=== PATIENT | male | born 1975 | race Caucasian/White ===

== ENCOUNTER → 2017-09-21 | Outpatient (CLI) | payer OTHER, SELFPAY | PROVIDERS: Visit Provider Internal Medicine | DX: I10 Essential (primary) hypertension (principal); E11.9 Type 2 diabetes mellitus without complications; E03.9 Hypothyroidism, unspecified | CPT/HCPCS: 80053; 80061; 83036; 84443 ==

== ENCOUNTER → 2017-10-01 | Outpatient (CLI) | payer OTHER, SELFPAY | PROVIDERS: PCP Internal Medicine; Visit Provider Internal Medicine | DX: M54.42 Lumbago with sciatica, left side (principal) | CPT/HCPCS: 72148; 76376 ==

== ENCOUNTER → 2017-11-01 10:51 | Outpatient (POV) | payer OTHER, SELFPAY ==
[2017-11-01 11:03] VITALS: BP 124/86; PULSE 94; RESP 18
--- NOTE | 2017-11-01 11:32 | HMH.PMCON ---
Assessment and Plan (1) Lumbosacral radiculopathy due to degenerative joint disease of spine Current visit: Yes Status: Chronic Category: Medical Code(s): M47.27 - Other spondylosis with radiculopathy, lumbosacral region (2) Degenerative joint disease (DJD) of lumbar spine Current visit: Yes Status: Chronic Qualifiers: Spinal osteoarthritis complication: with radiculopathy Qualified Code(s): M47.26 - Other spondylosis with radiculopathy, lumbar region Category: Medical Code(s): M47.816 - Spondylosis without myelopathy or radiculopathy, lumbar region - Assessment and plan all Dx Assessment and Plan for all problems:: We will seek approval and plan on lumbar epidural steroid injection under fluoroscopy at L4-L5. HPI - Data of Consult Patient: new to practice Consult date: 11/01/17 Requesting Physician: Rolando Hancock MD Primary Care Provider: Narciso Ramos - Consult Narrative Reason for consult: Low back pain and leg pain History of present illness: Mr. Grey is a 42 year old male who has low back pain and left leg pain. This is aggravated by repetitive bending at his job. Pain score is a 3 out of 10 today however when he is working it does increase to a 10 out of 10. Most of his pain is in the left leg all the way to the foot. MRI does show degenerative changes with bulging disc at L4-L5 and L5-S1. He also has facet hypertrophy at these levels. He has done physical therapy without any benefit. He is failed all other curative therapy. I do believe that he would benefit from a lumbar epidural steroid injection under fluoroscopy. Patient also reports that he has lost 30 pounds of weight which is not giving him any relief of his pain symptoms. CC: Rolando Hancock MD [facility] History I have reviewed the patient's past medical history: Yes 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: Reports:: Diabetes Mellitus Type 1, Diabetes Mellitus Type 2, Hyperlipidemia, Hypertension Denies:: Cancer, MRSA Amputation: No Fractures: No - *Social History Alcohol Intake: never Occupational Status: employed - Psychiatric History Expresses thoughts of harming self/others: None Suicide Plan Description: No Plan Review of Systems - Review of Systems Review of systems:: pertinent systems reviewed and negative unless documented below - *Musculoskeletal Reports abnormal walking, Reports back pain, Reports radiating pain into limb - *Neurologic Reports abnormal walking, Reports tingling/numbness/burning sensations, Reports radiating pain Meds Home Medications Medication Instructions Recorded Confirmed Type Levothyroxine Sodium 50 mcg PO DAILY 11/01/17 11/01/17 History [Levothyroxine 50mcg (0.05mg) Tab] Lisinopril [Lisinopril 20mg Tab] 20 mg PO DAILY 11/01/17 11/01/17 History Metformin HCl [Metformin HCl ER] 500 mg PO BID 11/01/17 11/01/17 History Sertraline HCl [Zoloft 100mg 200 mg PO DAILY 11/01/17 11/01/17 History tablet] Allergies Allergy/AdvReac Type Severity Reaction Status Date / Time No Known Allergies Allergy Unverified 09/21/17 14:05 Objective Vital signs: Pulse Resp BP 94 H 18 124/86 11/01/17 11:03 11/01/17 11:03 11/01/17 11:03 - Routine Back/Spine/Pelvis Exam Back/Spine: Present: vertebral tenderness, abnormal straight leg raise - *Routine Neurological Exam Present: alert, oriented X3, abnormal gait, moving all extremities Opioid Risk Tool - Opioid Risk Tool-Male Family hx alcohol abuse: N Family hx illegal drugs: N Family hx rx drug abuse: N Personal hx alcohol abuse: N Personal hx illegal drugs: N Personal hx rx drug abuse: N Age: 16-45 Hx of sexual abuse: N Mental health issues-ADD,OCD,Bipolar, etc: N Hx of depression: Y Male Risk Score: 2
--- NOTE | 2017-11-01 11:35 | P.CONS_ITS ---
Assessment and Plan (1) Lumbosacral radiculopathy due to degenerative joint disease of spine Current visit: Yes Status: Chronic Category: Medical Code(s): M47.27 - Other spondylosis with radiculopathy, lumbosacral region (2) Degenerative joint disease (DJD) of lumbar spine Current visit: Yes Status: Chronic Qualifiers: Spinal osteoarthritis complication: with radiculopathy Qualified Code(s): M47.26 - Other spondylosis with radiculopathy, lumbar region Category: Medical Code(s): M47.816 - Spondylosis without myelopathy or radiculopathy, lumbar region - Assessment and plan all Dx Assessment and Plan for all problems:: We will seek approval and plan on lumbar epidural steroid injection under fluoroscopy at L4-L5. HPI - Data of Consult Patient: new to practice Consult date: 11/01/17 Requesting Physician: Rolando Hancock MD Primary Care Provider: Narciso Ramos - Consult Narrative Reason for consult: Low back pain and leg pain History of present illness: Mr. Grey is a 42 year old male who has low back pain and left leg pain. This is aggravated by repetitive bending at his job. Pain score is a 3 out of 10 today however when he is working it does increase to a 10 out of 10. Most of his pain is in the left leg all the way to the foot. MRI does show degenerative changes with bulging disc at L4-L5 and L5-S1. He also has facet hypertrophy at these levels. He has done physical therapy without any benefit. He is failed all other curative therapy. I do believe that he would benefit from a lumbar epidural steroid injection under fluoroscopy. Patient also reports that he has lost 30 pounds of weight which is not giving him any relief of his pain symptoms. CC: Rolando Hancock MD [facility] History I have reviewed the patient's past medical history: Yes 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: Reports:: Diabetes Mellitus Type 1, Diabetes Mellitus Type 2, Hyperlipidemia, Hypertension Denies:: Cancer, MRSA Amputation: No Fractures: No - *Social History Alcohol Intake: never Occupational Status: employed - Psychiatric History Expresses thoughts of harming self/others: None Suicide Plan Description: No Plan Review of Systems - Review of Systems Review of systems:: pertinent systems reviewed and negative unless documented below - *Musculoskeletal Reports abnormal walking, Reports back pain, Reports radiating pain into limb - *Neurologic Reports abnormal walking, Reports tingling/numbness/burning sensations, Reports radiating pain Meds Home Medications Medication Instructions Recorded Confirmed Type Levothyroxine Sodium 50 mcg PO DAILY 11/01/17 11/01/17 History [Levothyroxine 50mcg (0.05mg) Tab] Lisinopril [Lisinopril 20mg Tab] 20 mg PO DAILY 11/01/17 11/01/17 History Metformin HCl [Metformin HCl ER] 500 mg PO BID 11/01/17 11/01/17 History Sertraline HCl [Zoloft 100mg 200 mg PO DAILY 11/01/17 11/01/17 History tablet] Allergies Allergy/AdvReac Type Severity Reaction Status Date / Time No Known Allergies Allergy Unverified 09/21/17 14:05 Objective Vital signs: Pulse Resp BP 94 H 18 124/86 11/01/17 11:03 11/01/17 11:03 11/01/17 11:03 - Routine Back/Spine/Pelvis Exam Back/Spine: Present: vertebral tenderness, abnormal straight leg raise - *Routine Neurological Exam Present: alert, oriented X3, abnormal gait, moving all extremities Opi
== END ==
PROVIDERS: PCP Internal Medicine; Visit Provider Anesthesiology
DX: M47.27 Other spondylosis with radiculopathy, lumbosacral region (principal)
CPT/HCPCS: 99202

== ENCOUNTER 2017-11-25 14:08 | Emergency (ER) | payer OTHER, SELFPAY ==
[2017-11-25 15:07] LABS: UTC Influenza A Antigen Negative (Negative); UTC Influenza B Antigen Negative (Negative)
[2017-11-25 15:08] VITALS: BP 181/88; PULSE 68; RESP 18; TEMP 36.5; O2SAT 96; BMI 40.6
--- NOTE | 2017-11-25 16:22 | HMH.EDUTC ---
[facility] Disposition Clinical Impression: Chest pain Qualifiers: Chest pain type: unspecified Qualified Code(s): R07.9 - Chest pain, unspecified Disposition: Still a Patient Condition on Discharge: Good Time of Disposition: 16:52 (transfer to ER) Medical Decision Making Vital Signs: 11/25/17 15:08 Temperature 97.7 F Temperature Source Temporal Artery Scan Pulse Rate [Right Radial] 68 Respiratory Rate 18 Blood Pressure [Right Arm] 181/88 Blood Pressure Mean [Right Arm] 119 02 Sat by Pulse Oximetry 96 Oxygen Delivery Method Room Air - Lab Data Lab results reviewed: Yes: I reviewed the patient's lab results. Lab Results 11/25/17 14:40: Influenza Type A Ag Negative, Influenza Type B Ag Negative - Mert Inquiry Pt receiving controlled substance: No - Reevaluation(s) Time: 16:30 Reevaluation #1: Discussed HPI and possible differentials as we are discussing HPI. Suggest transfer to er to rule out cardiac in nature. Pt afraid insurance won't cover it. I have to call them first . Pt calls them while in clinic prior to exam. Was on the phone for a period of time so I left to see more patients. Pt returned to me at 1650 and said he wanted to go to the ER because insurance recommended it. Report given to Dr. Jacques, ER MD. Room 5 available. Pt assisted over at 1652 and placed in room 5. Rossy and CC aware. [facility] HPI - General Stated complaint: achey all over Time Seen by Provider: 11/25/17 16:22 Mode of Arrival: Family Vehicle Source of Information: Patient Limitations: No Limitations Description of Symptoms (Recalled from Triage Doc. by RN): PT STATES HE FEELS LIKE HE PULLED A MUSCLE IN HIS LEFT CHEST. HEENT Symptoms (Recalled from RN notes): No Resp Symptoms (Recalled from RN notes): No Skin Symptoms (Recalled from RN notes): No MS Symptoms (Recalled from RN notes): Yes (LEFT CHEST PULLED MUSCLE) Functional Status (Recalled from RN notes): NA - History of Present Illness Provider Complaint: c/o left anterior chest pain x weeks. Worse with activity, primarily lifting. Radiates to back but also has chronic back pain so thought might be related. Describes as constant ache/squeeze. Currently 2-12/11. No SOA. Hx of DM, HTN. No known trauma or injury. - Related Data Home Medications Medication Instructions Recorded Confirmed Levothyroxine Sodium 50 mcg PO DAILY 11/01/17 11/25/17 [Levothyroxine 50mcg (0.05mg) Tab] Lisinopril [Lisinopril 20mg Tab] 20 mg PO DAILY 11/01/17 11/25/17 Metformin HCl [Metformin HCl ER] 500 mg PO BID 11/01/17 11/25/17 Sertraline HCl [Zoloft 100mg 200 mg PO DAILY 11/01/17 11/25/17 tablet] Allergies Allergy/AdvReac Type Severity Reaction Status Date / Time No Known Allergies Allergy Verified 11/25/17 14:48 - Worker's Comp Is this a Worker's Comp case?: No [facility] History I have reviewed the patient's past medical history: Yes 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: Reports:: Diabetes Mellitus Type 2, Hyperlipidemia, Hypertension, Kidney Stones Denies:: Cancer, Diabetes Mellitus Type 1, MRSA Other Surgeries: Yes: Other (kidney stone removed) Amputation: No Fractures: No - Social History Smoking Status: Never smoker Alcohol Intake: never Occupational Status: employed - Psychiatric History Expresses thoughts of harming self/others: None Suicide Plan Description: No Plan ROS Obtained: Yes Systems reviewed as appropriate & no additional complaints - Constitutional Constitutional: Denies body ache, Denies chills, Reports fatigue, Denies fever(s), Reports poor appetite - Cardiovascular Cardiovascular: Reports as per HPI, Denies edema, Denies irregular heart rhythm, Denies palpitations - Respiratory Respiratory: Yes as per HPI, No cough, No pain on inspiration - Gastrointestinal Gastrointestingal: Reports: nausea (comes and goes). Denies: abdominal pain, vomiting - Musculoskeletal Musculoskeletal: Denies joint pain, Reports limited range of motion (chronic, back, unchanged)
--- NOTE | 2017-11-25 16:30 | ED_ITS ---
[facility] [place] Disposition Clinical Impression: Chest pain Qualifiers: Chest pain type: unspecified Qualified Code(s): R07.9 - Chest pain, unspecified Disposition: Still a Patient Condition on Discharge: Good Time of Disposition: 16:52 (transfer to ER) Medical Decision Making Vital Signs: 11/25/17 15:08 Temperature 97.7 F Temperature Source Temporal Artery Scan Pulse Rate [Right Radial] 68 Respiratory Rate 18 Blood Pressure [Right Arm] 181/88 Blood Pressure Mean [Right Arm] 119 02 Sat by Pulse Oximetry 96 Oxygen Delivery Method Room Air - Lab Data Lab results reviewed: Yes: I reviewed the patient's lab results. Lab Results 11/25/17 14:40: Influenza Type A Ag Negative, Influenza Type B Ag Negative - Mert Inquiry Pt receiving controlled substance: No - Reevaluation(s) Time: 16:30 Reevaluation #1: Discussed HPI and possible differentials as we are discussing HPI. Suggest transfer to er to rule out cardiac in nature. Pt afraid insurance won't cover it. I have to call them first . Pt calls them while in clinic prior to exam. Was on the phone for a period of time so I left to see more patients. Pt returned to me at 1650 and said he wanted to go to the ER because insurance recommended it. Report given to Dr. Jacques, ER MD. Room 5 available. Pt assisted over at 1652 and placed in room 5. Rossy and CC aware. [facility] [place] HPI - General Stated complaint: achey all over Time Seen by Provider: 11/25/17 16:22 Mode of Arrival: Family Vehicle Source of Information: Patient Limitations: No Limitations Description of Symptoms (Recalled from Triage Doc. by RN): PT STATES HE FEELS LIKE HE PULLED A MUSCLE IN HIS LEFT CHEST. HEENT Symptoms (Recalled from RN notes): No Resp Symptoms (Recalled from RN notes): No Skin Symptoms (Recalled from RN notes): No MS Symptoms (Recalled from RN notes): Yes (LEFT CHEST PULLED MUSCLE) Functional Status (Recalled from RN notes): NA - History of Present Illness Provider Complaint: c/o left anterior chest pain x weeks. Worse with activity, primarily lifting. Radiates to back but also has chronic back pain so thought might be related. Describes as constant ache/squeeze. Currently 2-12/11. No SOA. Hx of DM, HTN. No known trauma or injury. - Related Data Home Medications Medication Instructions Recorded Confirmed Levothyroxine Sodium 50 mcg PO DAILY 11/01/17 11/25/17 [Levothyroxine 50mcg (0.05mg) Tab] Lisinopril [Lisinopril 20mg Tab] 20 mg PO DAILY 11/01/17 11/25/17 Metformin HCl [Metformin HCl ER] 500 mg PO BID 11/01/17 11/25/17 Sertraline HCl [Zoloft 100mg 200 mg PO DAILY 11/01/17 11/25/17 tablet] Allergies Allergy/AdvReac Type Severity Reaction Status Date / Time No Known Allergies Allergy Verified 11/25/17 14:48 - Worker's Comp Is this a Worker's Comp case?: No [facility] History I have reviewed the patient's past medical history: Yes 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: Reports:: Diabetes Mellitus Type 2, Hyperlipidemia, Hypertension, Kidney Stones Denies:: Cancer, Diabetes Mellitus Type 1, MRSA Other Surgeries: Yes: Other (kidney stone removed) Amputation: No Fractures: No - Social History Smoking Status: Never smoker Alcohol Intake: never Occupational Status: employed - Psychiatric History Expresses thoughts of harming self/others: None Suicide Plan Description: No Plan ROS Obtained: Yes Systems rev
[2017-11-25 16:53] VITALS: BP 181/88; PULSE 68; RESP 18; TEMP 36.5; O2SAT 96; BMI 41.8
--- NOTE | 2017-11-25 16:58 | XR_ITS ---
XR chest 2V HISTORY: Chest pain ITS.REASON: chest muscle pain ORDERING PHYSICIAN: Romeo Jacques MD PATIENT AGE: 42 years COMPARISON: 01/24/2012 FINDINGS: The cardiomediastinal silhouette and pulmonary vascularity are within normal limits. The lungs are clear without infiltrates, suspicious nodules, or pleural effusions. No acute bony abnormalities. IMPRESSION: Negative chest, no acute finding
[2017-11-25 17:14] LABS: Basophils # 0.1 K/mm3 (0-0.2); Basophils % 0.9 % (0.1-2.0); Eosinophils # 0.3 K/mm3 (0.0-0.4); Eosinophils % 2.8 % (0.1-12.0); Hematocrit 44.2 % (42.0-52.0); Hemoglobin 14.7 g/dL (14.1-18.0); Lymphocytes # 2.2 K/mm3 (0.7-4.5); Lymphocytes % 23.8 K/mm3 (10-50); Mean Corpuscular HGB Conc 33.2 g/dL (31.8-35.4); Mean Corpuscular Hemoglobin 29.1 pg (27.0-31.2); Mean Corpuscular Volume 87.6 fl (80-94); Mean Platelet Volume 7.4 fl (7.4-10.4); Monocytes # 0.5 K/mm3 (0.1-1.0); Monocytes % 5.7 % (1.7-9.3); Neutrophils % 66.9 % (37.0-80.0); Platelet Count 239 K/mm3 (142-424); Red Blood Count 5.05 M/mm3 (4.60-6.20); Red Cell Distribution Width 13.2 % (11.5-17.5)
[2017-11-25 17:16] LABS: Microscopic, Urine URINE MICROSCOPIC (MICROSCOPIC)
[2017-11-25 17:18] LABS: Appearance,Urine CLEAR (Clear); Bilirubin,Urine Negative (Negative); Blood, Urine TRACE-I (Negative); Color,Urine YELLOW (Yellow); Glucose,Urine (UA) Negative (Negative); Ketones,Urine Negative (Negative); Leukocyte Esterase,Urine Negative (Negative); Nitrate,Urine Negative (Negative); PH,Urine 6.5 (5.0-8.5); Protein,Urine Negative (Negative); Urobilinogen,Urine 0.2 EU/dl (0.2)
--- NOTE | 2017-11-25 17:23 | HMH.EDCP ---
ED Disposition Clinical Impression: Chest wall pain, HTN (hypertension), Hypothyroidism, Diabetes Chest pain Qualifiers: Chest pain type: unspecified Qualified Code(s): R07.9 - Chest pain, unspecified Disposition: Still a Patient Condition on Discharge: Good Additional Instructions: 1- take a daily 81 asa 2- see Dr Ramos in AM for an outpatient stress test. 3- return for any new sx or if the pain changes, Referrals: Narciso Ramos [Primary Care Provider] - - Critical Care Critical Care Time: No Attestation: On 11/25/17, the high probability of a clinically significant, sudden or life threatening deterioration of the following system(s) required my full and direct attention, intervention and personal management. The time I documented below is in addition to time spent performing reported procedures but includes the following listed in this critical care notation. Medical Decision Making - Medical Records Medical records reviewed: Yes: I reviewed the patient's medical records. Vital Signs: 11/25/17 15:08 11/25/17 16:53 Temperature 97.7 F 97.7 F Temperature Source Temporal Artery Scan Oral Pulse Rate [Right Radial] 68 68 Respiratory Rate 18 18 Blood Pressure [Right Arm] 181/88 181/88 Blood Pressure Mean [Right Arm] 119 119 Blood Pressure Source [Right Arm] Automatic Cuff Blood Pressure Position [Right Arm] Sitting 02 Sat by Pulse Oximetry 96 96 Oxygen Delivery Method Room Air Room Air - Lab Data Lab Results 11/25/17 14:40: Influenza Type A Ag Negative, Influenza Type B Ag Negative 11/25/17 17:02: WBC 9.0, RBC 5.05, Hgb 14.7, Hct 44.2, MCV 87.6, MCH 29.1, MCHC 33.2, RDW 13.2, Plt Count 239, MPV 7.4, Neut % (Auto) 66.9, Lymph % (Auto) 23.8, [place] % (Auto) 5.7, Eos % (Auto) 2.8, Baso % (Auto) 0.9, Neut # (Auto) 6.0, Lymph # (Auto) 2.2, [place] # (Auto) 0.5, Eos # (Auto) 0.3, Baso # (Auto) 0.1 11/25/17 17:02: Sodium 139, Potassium 4.0, Chloride 103, Carbon Dioxide 28, Anion Gap 12.0, BUN 13, Creatinine 0.81, Estimated Creat Clear 124, Estimated GFR 104, Est GFR ( Amer) 125, Glucose 102, Calcium 8.9, Total Bilirubin 0.5, AST 33, ALT 35, Alkaline Phosphatase 144 H, Total Creatine Kinase 76, CK-MB (CK-2) 0.7, CK-MB (CK-2) Rel Index 0.9, Troponin I < 0.02, Total Protein 7.8, Albumin 3.8, Globulin 4.0 H, Albumin/Globulin Ratio 1.0 L, Amylase 56, Lipase 231 11/25/17 17:12: Urine Color Yellow, Urine Appearance Clear, Urine pH 6.5, Ur Specific [place] 1.020, Urine Protein Negative, Urine Glucose (UA) Negative, Urine Ketones Negative, Urine Blood Trace-i, Urine Nitrate Negative, Urine Bilirubin Negative, Urine Urobilinogen 0.2, Ur Leukocyte Esterase Negative, Urine RBC Occasional, Urine WBC 3-5, Ur Squamous Epith Cells None, Urine Bacteria Trace 11/25/17 17:12: Urine Opiates Screen Negative, Ur Barbituates Screen Negative, Ur Phencyclidine Scrn Negative, Ur Amphetamines Screen Negative, U Methamphetamines Scrn Negative, U Benzodiazepines Scrn Negative, Urine Cocaine Screen Negative, U Marijuana (THC) Screen Negative Result diagrams: 11/25/17 17:02 11/25/17 17:02 Orders (Tests/Meds): ED MEDICATIONS Generic Name Dose Route Start Last Admin Trade Name Freq PRN Reason Stop Dose Admin Lisinopril 10 mg 11/26/17 09:00 Zestril 10mg Tablet PO 12/26/17 08:59 DAILY SHAYY ORDERS Category Date Time Status XR chest 2V Stat Exams 11/25/17 16:58 Taken - ECG Data Tracing #1 Normal sinus rhythm 66/min early repolarization with QRS and T waves no acute. ECG initial impression date: 11/25/17 ECG initial impression time: 17:26 - Mert Inquiry Pt receiving controlled substance: No Mert was queried for this patient: No Medical Decision Making Narrative: The patient chest pain remain unchanged he was negative troponin, EKG was unchanged from 2008. His blood pressure has decreased from 180-150 mmhg. I discussed with him his cardiac risk factors. He told me that his hemoglobin
[2017-11-25 17:26] LABS: Amphetamine/Metha Screen,Urine Negative ng/mL (<1000); Barbiturates Screen,Urine Negative ng/mL (<200); Benzodiazepines Screen,Urine Negative ng/mL (200); Cannabinoid Screen,Urine Negative ng/mL (<50); Cocaine Screen,Urine Negative ng/g (<300); Methadone Screen,Urine Negative ng/mL (<300); Opiate Screen,Urine Negative ng/mL (<300); Phencyclidine Screen,Urine Negative ng/mL (<25)
--- NOTE | 2017-11-25 17:26 | ED_ITS ---
ED Disposition Clinical Impression: Chest wall pain, HTN (hypertension), Hypothyroidism, Diabetes Chest pain Qualifiers: Chest pain type: unspecified Qualified Code(s): R07.9 - Chest pain, unspecified Disposition: Still a Patient Condition on Discharge: Good Additional Instructions: 1- take a daily 81 asa 2- see Dr Ramos in AM for an outpatient stress test. 3- return for any new sx or if the pain changes, Referrals: Narciso Ramos [Primary Care Provider] - - Critical Care Critical Care Time: No Attestation: On 11/25/17, the high probability of a clinically significant, sudden or life threatening deterioration of the following system(s) required my full and direct attention, intervention and personal management. The time I documented below is in addition to time spent performing reported procedures but includes the following listed in this critical care notation. Medical Decision Making - Medical Records Medical records reviewed: Yes: I reviewed the patient's medical records. Vital Signs: 11/25/17 15:08 11/25/17 16:53 Temperature 97.7 F 97.7 F Temperature Source Temporal Artery Scan Oral Pulse Rate [Right Radial] 68 68 Respiratory Rate 18 18 Blood Pressure [Right Arm] 181/88 181/88 Blood Pressure Mean [Right Arm] 119 119 Blood Pressure Source [Right Arm] Automatic Cuff Blood Pressure Position [Right Arm] Sitting 02 Sat by Pulse Oximetry 96 96 Oxygen Delivery Method Room Air Room Air - Lab Data Lab Results 11/25/17 14:40: Influenza Type A Ag Negative, Influenza Type B Ag Negative 11/25/17 17:02: WBC 9.0, RBC 5.05, Hgb 14.7, Hct 44.2, MCV 87.6, MCH 29.1, MCHC 33.2, RDW 13.2, Plt Count 239, MPV 7.4, Neut % (Auto) 66.9, Lymph % (Auto) 23.8 , [place] % (Auto) 5.7, Eos % (Auto) 2.8, Baso % (Auto) 0.9, Neut # (Auto) 6.0, Lymph # (Auto) 2.2, [place] # (Auto) 0.5, Eos # (Auto) 0.3, Baso # (Auto) 0.1 11/25/17 17:02: Sodium 139, Potassium 4.0, Chloride 103, Carbon Dioxide 28, Anion Gap 12.0, BUN 13, Creatinine 0.81, Estimated Creat Clear 124, Estimated GFR 104, Est GFR ( Amer) 125, Glucose 102, Calcium 8.9, Total Bilirubin 0.5, AST 33, ALT 35, Alkaline Phosphatase 144 H, Total Creatine Kinase 76, CK- MB (CK-2) 0.7, CK-MB (CK-2) Rel Index 0.9, Troponin I < 0.02, Total Protein 7.8 , Albumin 3.8, Globulin 4.0 H, Albumin/Globulin Ratio 1.0 L, Amylase 56, Lipase 231 11/25/17 17:12: Urine Color Yellow, Urine Appearance Clear, Urine pH 6.5, Ur Specific [place] 1.020, Urine Protein Negative, Urine Glucose (UA) Negative, Urine Ketones Negative, Urine Blood Trace-i, Urine Nitrate Negative, Urine Bilirubin Negative, Urine Urobilinogen 0.2, Ur Leukocyte Esterase Negative, Urine RBC Occasional, Urine WBC 3-5, Ur Squamous Epith Cells None, Urine Bacteria Trace 11/25/17 17:12: Urine Opiates Screen Negative, Ur Barbituates Screen Negative, Ur Phencyclidine Scrn Negative, Ur Amphetamines Screen Negative, U Methamphetamines Scrn Negative, U Benzodiazepines Scrn Negative, Urine Cocaine Screen Negative, U Marijuana (THC) Screen Negative Result diagrams: 11/25/17 17:02 11/25/17 17:02 Orders (Tests/Meds): ED MEDICATIONS Generic Name Dose Route Start Last Admin Trade Name Freq PRN Reason Stop Dose Admin Lisinopril 10 mg 11/26/17 09:00 Zestril 10mg Tablet PO 12/26/17 08:59 DAILY SHAYY ORDERS Category Date Time Status XR chest 2V Stat Exams 11/25/17 16:58 Taken
[2017-11-25 17:33] LABS: Bacteria,Urine Trace /lpf; RBC,Urine Occasional #/hpf (0-3)
[2017-11-25 17:46] LABS: Alanine Aminotransferase 35 U/L (12-78); Albumin Level 3.8 gm/dL (3.4-5.0); Alkaline Phosphatase 144 U/L (46-116); Amylase 56 U/L (25-125); Aspartate Amino Transferase 33 U/L (15-37); Bilirubin,Total 0.5 mg/dL (0.2-1.0); Blood Urea Nitrogen 13 mg/dL (7-18); CKMB Relative Index 0.9 U/L (0-4.0); Calcium 8.9 mg/dL (8.5-10.1); Carbon Dioxide 28 mmol/L (21.0-32.0); Chloride 103 mmol/L (98-107); Creatine Kinase 76 U/L (39-308); Creatine Kinase MB 0.7 mg/ml (0.0-3.6); Creatinine Clearance Estimated 124 mL/min (0-300); Creatinine,Serum 0.81 mg/dL (0.70-1.30); Estimated Glomerular Filt Rate 104 ml/min (>60); GFR (African American) 125 ML/MIN (>60); Glucose 102 mg/dL (74-106); Lipase 231 u/L (73-393); Sodium 139 mmol/L (136-145); Total Protein,Serum 7.8 gm/dL (6.4-8.2); Troponin I < 0.02 ng/ml (0.00-0.06)
[2017-11-25 18:17] VITALS: BP 159/99; PULSE 89; RESP 16; TEMP 36.7
== END 2017-11-25 18:19 | disposition still patient (30) ==
LOC: UTC 14:11 → ER 16:51
PROVIDERS: Nurse Practitioner Family; Emergency Provider Emergency Medicine; PCP Internal Medicine
DX: R07.9 Chest pain, unspecified (principal); E11.9 Type 2 diabetes mellitus without complications; E78.5 Hyperlipidemia, unspecified; I10 Essential (primary) hypertension; E03.9 Hypothyroidism, unspecified; Z79.899 Other long term (current) drug therapy
CPT/HCPCS: 71046; 80053; 80305; 81001; 82150; 82550; 82553; 83690; 84484; 85025; 87804; 93005; 93041; 99283

== ENCOUNTER → 2017-11-27 10:18 | Outpatient (CLI) | payer OTHER, SELFPAY | PROVIDERS: PCP Internal Medicine; Visit Provider Internal Medicine | DX: R07.89 Other chest pain (principal) | CPT/HCPCS: 93005 ==

== ENCOUNTER → 2017-12-02 07:53 | Outpatient (CLI) | payer OTHER, SELFPAY | PROVIDERS: PCP Internal Medicine; Visit Provider Internal Medicine | DX: R07.89 Other chest pain (principal) | CPT/HCPCS: 93017 ==

== ENCOUNTER 2017-12-10 13:16 | Day surgery (SDC) | payer OTHER, SELFPAY ==
[2017-12-10 13:49] VITALS: BP 142/64; PULSE 74; TEMP 36.8; O2SAT 95; BMI 40.6
--- NOTE | 2017-12-10 14:22 | HMH.PMPROC ---
- Procedure Date: 12/10/17 Time: 14:23 Anesthesiologist:: Rolando Hancock MD Complications:: None Pre-procedure Diagnosis:: Degenerative disc disease of lumbar spine with lumbar radiculopathy symptoms Post-procedure Diagnosis:: Same Indications for Procedure:: This patient is a pleasant 42-year-old white male who we are treating for low back pain with lumbar radiculopathy symptoms. He has some increasing low back pain radiating down his left leg all the way to the foot. MRI does show degenerative changes with bulging disc at L4-5 and L5-S1. We will do a lumbar epidural steroid injection today to see if this will help with his pain symptoms. Procedure Details:: Lumbar epidural steroid injection under fluoroscopy Informed consent was obtained and the risk and benefits of the procedure was explained to the patient. The patient was taken to the procedure room. The patient was placed prone on the procedure table. The patient was prepped and draped in sterile fashion. C-arm fluoroscopy was used to view the lumbar spine. Skin and subcutaneous tissues were anesthetized using lidocaine. I placed an 18-gauge epidural needle and advanced into the L4-L5 interspace using fluoroscopic guidance and [id number] to air. After confirmation of needle placement in the epidural space with dye I injected 2 mL of lidocaine 1.5% with Depo-Medrol 80 mg. Patient tolerated the procedure well with no complications. Plan and Disposition:: We will follow-up with him in 2 weeks. Will reevaluate symptoms at that time.
[2017-12-10 14:25] VITALS: BP 128/77; PULSE 75; RESP 18
--- NOTE | 2017-12-10 14:26 | P.PCN_ITS ---
- Procedure Date: 12/10/17 Time: 14:23 Anesthesiologist:: Rolando Hancock MD Complications:: None Pre-procedure Diagnosis:: Degenerative disc disease of lumbar spine with lumbar radiculopathy symptoms Post-procedure Diagnosis:: Same Indications for Procedure:: This patient is a pleasant 42-year-old white male who we are treating for low back pain with lumbar radiculopathy symptoms. He has some increasing low back pain radiating down his left leg all the way to the foot. MRI does show degenerative changes with bulging disc at L4-5 and L5-S1. We will do a lumbar epidural steroid injection today to see if this will help with his pain symptoms. Procedure Details:: Lumbar epidural steroid injection under fluoroscopy Informed consent was obtained and the risk and benefits of the procedure was explained to the patient. The patient was taken to the procedure room. The patient was placed prone on the procedure table. The patient was prepped and draped in sterile fashion. C-arm fluoroscopy was used to view the lumbar spine. Skin and subcutaneous tissues were anesthetized using lidocaine. I placed an 18-gauge epidural needle and advanced into the L4-L5 interspace using fluoroscopic guidance and [id number] to air. After confirmation of needle placement in the epidural space with dye I injected 2 mL of lidocaine 1.5 % with Depo-Medrol 80 mg. Patient tolerated the procedure well with no complications. Plan and Disposition:: We will follow-up with him in 2 weeks. Will reevaluate symptoms at that time.
[2017-12-10 14:27] VITALS: BP 132/78; PULSE 78; RESP 18
[2017-12-10 14:34] VITALS: BP 110/71; PULSE 83; RESP 18; TEMP 36.7; O2SAT 97
== END 2017-12-10 14:40 | disposition home or self-care (01) ==
PROVIDERS: PCP Internal Medicine; Visit Provider Anesthesiology
DX: M51.16 Intervertebral disc disorders with radiculopathy, lumbar region (principal)
CPT/HCPCS: 62323; J1040; Q9966

== ENCOUNTER → 2017-12-27 14:58 | Outpatient (POV) | payer OTHER, SELFPAY ==
[2017-12-27 15:06] VITALS: BP 165/93; PULSE 86; RESP 20; TEMP 36.3; O2SAT 97; BMI 41.3
--- NOTE | 2017-12-27 16:17 | HMH.PAINSOAP ---
[facility] Pain Management SOAP Note Subjective:: Patient is a pleasant 42-year-old white male who presents today for follow-up after recent lumbar epidural steroid injection. Patient stated he did very well for several weeks after his injection. Patient states that he had better functionality and range of motion. Patient also states that some other issues resolved such as sinus problems. 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 Patient's pain score today is a 5 out of 10. However gets worse when he is working. Patient is currently working to lose weight as well. Patient and I discussed an additional injection and he would like to pursue this. Patient states this pain is dull and achy and does go down his legs at times. His left leg being the worst. ROS General: no recent weight change, no fever, no sleep disturbances Respiratory: no cough, no shortness of air, no recurring pulmonary infections Cardiovascular/Peripheral Vascular: No chest pain, No palpitations, no edema, no shortness of breath. Gastrointestinal: no incontinence, normal bowel movements reported Genitourinary: no incontinence Musculoskeletal: Back pain, left leg pain Psychiatric: normal mood/ affect, [denies depression], [denies anxiety] Neurological: [denies weakness in extremities], [denies balance issues] Objective:: Physical Exam General: Alert and oriented x3, no acute distress, pleasant and cooperative, [on room air] Lungs: Resps E/U, Symmetrical chest expansion, Eyes: PERRL Musculoskeletal: Flexion and extension of lumbar spine somewhat guarded secondary to pain, deep tendon reflexes normal, strength in upper and lower extremities [5/5], slightly antalgic gait noted, positive leg raise test on the left side at 30? Neurological: speech clear, diaphragm builder equal, no gross sensory deficits Assessment:: Degenerative disc disease of the lumbar spine with lumbar radiculopathy Plan:: We will ask his insurance for approval for an additional lumbar epidural steroid injection at L4-L5. Given the efficacy of the last injection I believe that this may be beneficial in giving him some long-term functionality. Patient's tried and failed anti-inflammatories and physical therapy. I will follow-up with this patient after his injection. This note was dictated using voice recognition software may contain errors or omissions
--- NOTE | 2017-12-27 16:20 | P.CONS_ITS ---
[facility] Pain Management SOAP Note Subjective:: Patient is a pleasant 42-year-old white male who presents today for follow-up after recent lumbar epidural steroid injection. Patient stated he did very well for several weeks after his injection. Patient states that he had better functionality and range of motion. Patient also states that some other issues resolved such as sinus problems. 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 Patient's pain score today is a 5 out of 10. However gets worse when he is working. Patient is currently working to lose weight as well. Patient and I discussed an additional injection and he would like to pursue this. Patient states this pain is dull and achy and does go down his legs at times. His left leg being the worst. ROS General: no recent weight change, no fever, no sleep disturbances Respiratory: no cough, no shortness of air, no recurring pulmonary infections Cardiovascular/Peripheral Vascular: No chest pain, No palpitations, no edema, no shortness of breath. Gastrointestinal: no incontinence, normal bowel movements reported Genitourinary: no incontinence Musculoskeletal: Back pain, left leg pain Psychiatric: normal mood/ affect, [denies depression], [denies anxiety] Neurological: [denies weakness in extremities], [denies balance issues] Objective:: Physical Exam General: Alert and oriented x3, no acute distress, pleasant and cooperative, [ on room air] Lungs: Resps E/U, Symmetrical chest expansion, Eyes: PERRL Musculoskeletal: Flexion and extension of lumbar spine somewhat guarded secondary to pain, deep tendon reflexes normal, strength in upper and lower extremities [5/5], slightly antalgic gait noted, positive leg raise test on the left side at 30? 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 Given the efficacy of the last injection I believe that this may be beneficial in giving him some long-term functionality. Patient 's tried and failed anti-inflammatories and physical therapy. I will follow-up with this patient after his injection. This note was dictated using voice recognition software may contain errors or omissions
== END ==
PROVIDERS: PCP Internal Medicine; Visit Provider Clinical Nurse Specialist Family Health
DX: M54.16 Radiculopathy, lumbar region
CPT/HCPCS: 99212

== ENCOUNTER → 2018-01-07 15:01 | Day surgery (SDC) | payer OTHER, SELFPAY ==
--- NOTE | 2018-01-07 15:27 | HMH.PMPROC ---
- Procedure Date: 01/07/18 Time: 15:28 Anesthesiologist:: Rolando Hancock MD Complications:: None Pre-procedure Diagnosis:: Degenerative disc disease of lumbar spine with lumbar radiculopathy symptoms Post-procedure Diagnosis:: Same Indications for Procedure:: This patient is a pleasant 42-year-old white male who we are treating for low back pain with lumbar radiculopathy symptoms. He did very well after his last injection. He was 80-90% better for a few weeks. Pain is now starting to come back. We will do a repeat lumbar epidural steroid injection today to see if this helps with his pain symptoms. Procedure Details:: Lumbar epidural steroid injection under fluoroscopy informed consent was obtained and the risk and benefits of the procedure was explained to the patient. The patient was taken to the procedure room. The patient was placed prone on the procedure table. The patient was prepped and draped in sterile fashion. C-arm fluoroscopy was used to view the lumbar spine. Skin and subcutaneous tissues were anesthetized using lidocaine. I placed an 18-gauge epidural needle and advanced into the L4-L5 interspace using fluoroscopic guidance and [id number] to air. After confirmation of needle placement in the epidural space with dye I injected 2 mL of lidocaine 1.5% with Depo-Medrol 80 mg. Patient tolerated the procedure well with no complications. Plan and Disposition:: We will follow-up with this patient in 2 weeks. We will reevaluate his symptoms at that time
[2018-01-07 15:30] VITALS: BP 159/69; PULSE 67; RESP 18
[2018-01-07 15:32] VITALS: BP 166/89; PULSE 72; RESP 18
--- NOTE | 2018-01-07 15:34 | P.PCN_ITS ---
- Procedure Date: 01/07/18 Time: 15:28 Anesthesiologist:: Rolando Hancock MD Complications:: None Pre-procedure Diagnosis:: Degenerative disc disease of lumbar spine with lumbar radiculopathy symptoms Post-procedure Diagnosis:: Same Indications for Procedure:: This patient is a pleasant 42-year-old white male who we are treating for low back pain with lumbar radiculopathy symptoms. He did very well after his last injection. He was 80-90% better for a few weeks. Pain is now starting to come back. We will do a repeat lumbar epidural steroid injection today to see if this helps with his pain symptoms. Procedure Details:: Lumbar epidural steroid injection under fluoroscopy informed consent was obtained and the risk and benefits of the procedure was explained to the patient. The patient was taken to the procedure room. The patient was placed prone on the procedure table. The patient was prepped and draped in sterile fashion. C-arm fluoroscopy was used to view the lumbar spine. Skin and subcutaneous tissues were anesthetized using lidocaine. I placed an 18-gauge epidural needle and advanced into the L4-L5 interspace using fluoroscopic guidance and [id number] to air. After confirmation of needle placement in the epidural space with dye I injected 2 mL of lidocaine 1.5 % with Depo-Medrol 80 mg. Patient tolerated the procedure well with no complications. Plan and Disposition:: We will follow-up with this patient in 2 weeks. We will reevaluate his symptoms at that time
== END ==
PROVIDERS: PCP Internal Medicine; Visit Provider Anesthesiology
DX: M51.16 Intervertebral disc disorders with radiculopathy, lumbar region (principal)
CPT/HCPCS: 62323; J1040; Q9966

== ENCOUNTER → 2018-02-07 12:41 | Outpatient (POV) | payer OTHER, SELFPAY ==
[2018-02-07 13:13] VITALS: BP 142/79; PULSE 68; RESP 18; TEMP 36.6; O2SAT 97; BMI 85.3
--- NOTE | 2018-02-07 14:33 | HMH.PAINSOAP ---
[facility] Pain Management SOAP Note Subjective:: Patient is a 42-year-old white male who presents today for follow-up after his last lumbar epidural steroid injection. Patient states he got no relief in his symptoms actually worsened. Patient has not had a neurosurgical consult or tried medication such as gabapentin. Patient is not having numbness and tingling down his left leg and into his foot. Patient has had a recent MRI showing some L4-L5 foraminal encroachment and disc bulge. Patient rates his pain an 8 out of 10 today. ROS General: no recent weight change, no fever, no sleep disturbances Respiratory: no cough, no shortness of air, no recurring pulmonary infections Cardiovascular/Peripheral Vascular: No chest pain, No palpitations, no edema, no shortness of breath. Gastrointestinal: no incontinence, normal bowel movements reported Genitourinary: no incontinence Musculoskeletal: Pain, left leg pain Psychiatric: normal mood/ affect, [denies depression], [denies anxiety] Neurological: Weakness in left lower extremity at times, [denies balance issues] Objective:: Physical Exam General: Alert and oriented x3, no acute distress, pleasant and cooperative, [on room air] Lungs: Resps E/U, Symmetrical chest expansion, Eyes: PERRL Musculoskeletal: Flexion and extension of lumbar spine somewhat guarded secondary to pain, deep tendon reflexes normal, strength in upper and lower extremities [5/5], [abnormal gait noted] positive straight leg raise test on the left side at 30? 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 We will also start the patient on gabapentin 300 mg 1 tab p.o. nightly. We will follow-up with him after his consultation. If patient tolerates the gabapentin well we can increase him to 300 mg 1 tab p.o. 3 times a day. This note was dictated using voice recognition software and may contain errors or omissions
--- NOTE | 2018-02-07 14:37 | P.CONS_ITS ---
[facility] Pain Management SOAP Note Subjective:: Patient is a 42-year-old white male who presents today for follow-up after his last lumbar epidural steroid injection. Patient states he got no relief in his symptoms actually worsened. Patient has not had a neurosurgical consult or tried medication such as gabapentin. Patient is not having numbness and tingling down his left leg and into his foot. Patient has had a recent MRI showing some L4-L5 foraminal encroachment and disc bulge. Patient rates his pain an 8 out of 10 today. ROS General: no recent weight change, no fever, no sleep disturbances Respiratory: no cough, no shortness of air, no recurring pulmonary infections Cardiovascular/Peripheral Vascular: No chest pain, No palpitations, no edema, no shortness of breath. Gastrointestinal: no incontinence, normal bowel movements reported Genitourinary: no incontinence Musculoskeletal: Pain, left leg pain Psychiatric: normal mood/ affect, [denies depression], [denies anxiety] Neurological: Weakness in left lower extremity at times, [denies balance issues] Objective:: Physical Exam General: Alert and oriented x3, no acute distress, pleasant and cooperative, [ on room air] Lungs: Resps E/U, Symmetrical chest expansion, Eyes: PERRL Musculoskeletal: Flexion and extension of lumbar spine somewhat guarded secondary to pain, deep tendon reflexes normal, strength in upper and lower extremities [5/5], [abnormal gait noted] positive straight leg raise test on the left side at 30? 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 We will also start the patient on gabapentin 300 mg 1 tab p.o. nightly. We will follow-up with him after his consultation. If patient tolerates the gabapentin well we can increase him to 300 mg 1 tab p.o. 3 times a day. This note was dictated using voice recognition software and may contain errors or omissions
--- NOTE | 2018-02-07 16:15 | PC.PHONENOTE ---
called in Rx for Gabapentin 300mg qhs with no refills
== END ==
PROVIDERS: PCP Internal Medicine; Visit Provider Clinical Nurse Specialist Family Health
DX: M54.16 Radiculopathy, lumbar region (principal)
CPT/HCPCS: 99212

== ENCOUNTER → 2018-05-04 13:16 | Outpatient (POV) | payer OTHER, SELFPAY ==
[2018-05-04 14:00] VITALS: BP 142/80; PULSE 76; RESP 18; O2SAT 96; BMI 41.3
--- NOTE | 2018-05-04 14:10 | HMH.PAINSOAP ---
[facility] Pain Management SOAP Note Subjective:: This patient is a pleasant 43-year-old white male who we previously treated for low back pain with lumbar radicular symptoms. He has had lumbar epidural steroid injections which did not give him any benefit. He also did not try gabapentin. He did see Dr. Piña who did not feel that he was a surgical candidate. We have exhausted all treatment options with this patient. I do not see that there is anything further that we can offer. He is asking for work restrictions. In my opinion I do not feel that he needs to be on any work restrictions. He says he has pain with certain activities at work. At this time I have refused to fill out any papers for work restrictions as I do not feel that given his pathology he needs any work restrictions. Objective:: Alert and oriented ?3 in no acute distress. Patient does have a normal gait. Motor strength of the lower extremities is 5/5. There is no gross sensory deficit. Assessment:: Degenerative disc disease of lumbar spine with lumbar radiculopathy symptoms. Plan:: This patient does have an MRI that does show degenerative changes with some neuroforaminal narrowing. He has failed all conservative treatment including injections. He is not a surgical candidate. He has not tried gabapentin. He continues to have pain at work. He is asking for work restrictions. Given his pathology I do not feel that he needs any work restrictions. Also we have exhausted all treatment options to offer him. We will see him back on a as needed basis.
== END ==
PROVIDERS: PCP Internal Medicine; Visit Provider Clinical Nurse Specialist Family Health
DX: M51.16 Intervertebral disc disorders with radiculopathy, lumbar region (principal)
CPT/HCPCS: 99211; 99212

== ENCOUNTER → 2018-09-09 16:37 | Outpatient (CLI) | payer OTHER, SELFPAY ==
[2018-09-09 17:39] LABS: Hemoglobin A1C 6.3 % (0.0-7.0)
[2018-09-09 18:33] LABS: T4 (Thyroxine) 11.1 ug/dl (4.7-13.3); Thyroid Stimulating Hormone 1.61 uIU/ml (0.358-3.740)
[2018-09-14 07:02] LABS: Testosterone,Free 4.1 pg/mL (6.8-21.5)
== END ==
PROVIDERS: Visit Provider Internal Medicine
DX: E11.9 Type 2 diabetes mellitus without complications (principal); E03.9 Hypothyroidism, unspecified; F32.9 Major depressive disorder, single episode, unspecified; I10 Essential (primary) hypertension; R53.83 Other fatigue
CPT/HCPCS: 83036; 84402; 84436; 84443

== ENCOUNTER → 2019-02-09 11:42 | Outpatient (CLI) | payer OTHER, SELFPAY ==
--- NOTE | 2019-02-09 11:45 | XR_ITS ---
XR KUB HISTORY: ITS.REASON: KIDNEY STONE ORDERING PHYSICIAN: Adithya Doss MD PATIENT AGE: 43 years COMPARISON: 12/19/2018 FINDINGS: 5 mm calcific density is present lateral to the L4 transverse process consistent with a ureteral stone. Previously this was at the L3 level. IMPRESSION: 5 mm left mid ureteral stone
== END ==
PROVIDERS: PCP Internal Medicine; Visit Provider Urology
DX: N20.0 Calculus of kidney (principal)
CPT/HCPCS: 74018

== ENCOUNTER → 2019-05-25 13:08 | Outpatient (CLI) | payer OTHER, SELFPAY ==
--- NOTE | 2019-05-25 13:11 | XR_ITS ---
PROCEDURE: XR KUB CLINICAL INDICATION: Kidney Stones COMPARISON: ABDPELWO CT abdomen pelvis wo con from 12/19/2018 KUB XR KUB from 02/09/2019 FINDINGS: There a 4-5 mm stone overlying the lower pole of the left kidney. Previously a stone was noted just to the left of the L4 transverse process. No ureteral calculi are evident. IMPRESSION: Left nephrolithiasis Dictated by: Soto Romano MD 05/25/2019 13:25 Signed by: <Electronically signed by Soto Romano MD in [place]> 05/25/2019 13:25
== END ==
PROVIDERS: PCP Internal Medicine; Visit Provider Urology
DX: N23 Unspecified renal colic (principal)
CPT/HCPCS: 74018

== ENCOUNTER → 2020-02-16 13:26 | Outpatient (CLI) | payer OTHER, SELFPAY | PROVIDERS: PCP Internal Medicine; Visit Provider Internal Medicine | DX: G47.33 Obstructive sleep apnea (adult) (pediatric) (principal); I10 Essential (primary) hypertension; R40.0 Somnolence; R53.83 Other fatigue; E66.9 Obesity, unspecified | CPT/HCPCS: G0399 ==

== ENCOUNTER → 2020-03-12 10:10 | Outpatient (CLI) | payer OTHER, SELFPAY ==
--- NOTE | 2020-03-12 10:15 | XR_ITS ---
PROCEDURE: XR FOOT WT BEARING LT 3V CLINICAL INDICATION: pain COMPARISON: No exams were available for comparison FINDINGS: No fracture or dislocation. No lytic or blastic change. There is normal mineralization. The joint spaces are well-preserved. No significant degenerative/arthritic changes. No erosive changes evident. Other findings:There is an os trigonum noted. There is a small spur of the calcaneus at the insertion of the plantar tendon. There is minor spurring of the tibial talar articulation anteriorly. IMPRESSION: No acute findings. Dictated by: Dr. Teddy Robb MD 03/12/2020 13:[address] Teddy Robb MD in [place] 03/12/2020 13:17
--- NOTE | 2020-03-12 10:15 | XR_ITS ---
PROCEDURE: XR FOOT WT BEARING RT 3V CLINICAL INDICATION: pain COMPARISON: No exams were available for comparison FINDINGS: No fracture or dislocation. No lytic or blastic change. There is normal mineralization. The joint spaces are well-preserved. No significant degenerative/arthritic changes. No erosive changes evident. Other findings:There is minor spurring of the tibial talar articulation anteriorly. IMPRESSION: No acute findings. Dictated by: Dr. Teddy Robb MD 03/12/2020 13:[address] Teddy Robb MD in [place] 03/12/2020 13:18
== END ==
PROVIDERS: PCP Internal Medicine; Visit Provider Podiatrist
DX: M72.2 Plantar fascial fibromatosis (principal); M77.32 Calcaneal spur, left foot
CPT/HCPCS: 73630

== ENCOUNTER 2020-05-19 17:50 | Emergency (ER) | payer OTHER, SELFPAY ==
[2020-05-19 18:00] VITALS: BP 148/90; PULSE 72; RESP 19; TEMP 36.6; O2SAT 99; BMI 43.4
--- NOTE | 2020-05-19 18:25 | HMH.EDUTC ---
[facility] Disposition Clinical Impression: Low back pain Qualifiers: Chronicity: chronic Back pain laterality: left Sciatica presence: with sciatica Sciatica laterality: sciatica of left side Qualified Code(s): M54.42 - Lumbago with sciatica, left side Disposition: Home, Self-Care Condition on Discharge: Good Instructions: DI for Low Back Pain Additional Instructions: Go home and rest. It would be best if you rested tomorrow too. No heavy lifting. No twisting. Take the oral medications as directed. The muscle relaxer (robaxin) will make you drowsy, so don't drive or operate heavy machinery after taking it. Don't start the oral steroids (medrol dose pack) until tomorrow, since you had the shots in here today. Follow up with your regular doctor. GO TO THE ER FOR ANY WORSENING SYMPTOMS OR CONCERN, ESPECIALLY BOWEL OR BLADDER ISSUES, SADDLE AREA NUMBNESS, FEVER, ETC Prescriptions: methylPREDNISolone [Medrol] 4 mg PO DIRECTED 6 Days #21 tab.ds.pk Transmission Status: Received by [facility] #[id number] Methocarbamol [Robaxin 500mg Tab] 500 mg PO BIDP PRN #30 tab PRN Reason: Muscle Spasm Transmission Status: Received by [facility] #[id number] Referrals: Narciso Ramos [Primary Care Provider] - Forms: Work/School Release Time of Disposition: 18:28 Medical Decision Making - Medical Records Medical records reviewed: No: I reviewed the patient's medical records. - Mert Inquiry Pt receiving controlled substance: No Vital Signs: 05/19/20 18:00 05/19/20 18:31 Temperature 97.9 F 97.9 F Temperature Source Oral Pulse Rate 72 Pulse Rate [Right Brachial] 72 Respiratory Rate 19 19 Blood Pressure 148/90 H Blood Pressure [Right Arm] 148/90 H Blood Pressure Mean [Right Arm] 109 Blood Pressure Source [Right Arm] Automatic Cuff Blood Pressure Position [Right Arm] Sitting 02 Sat by Pulse Oximetry 99 Orders (Tests/Meds): ED MEDICATIONS Discontinued Medications Generic Name Dose Route Start Last Admin Trade Name Freq PRN Reason Stop Dose Admin Ketorolac Tromethamine 60 mg 05/19/20 18:08 05/19/20 18:16 Toradol 60mg/2ml Vial IM 05/19/20 18:09 60 mg ONCE ONE Administration Methylprednisolone Sodium Succinate 125 mg 05/19/20 18:08 05/19/20 18:16 Solu-Medrol 125mg/2ml Vial IM 05/19/20 18:09 125 mg ONCE ONE Administration [facility] HPI - General Stated complaint: Back pain Time Seen by Provider: 05/19/20 18:00 Mode of Arrival: Family Vehicle Source of Information: Patient Limitations: No Limitations Description of Symptoms (Recalled from Triage Doc. 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 He has a long history of low back pain issues. The last time this happened was around 3 months ago. He denies any recent falls or other injury. He states that he had to lift some heavy stuff and it began hurting after that. - Related Data Home Medications Medication Instructions Recorded Confirmed Levothyroxine Sodium 100 mcg PO DAILY 11/01/17 05/07/20 [Levothyroxine 50mcg (0.05mg) Tab] Metformin HCl [Metformin HCl ER] 500 mg PO BID 11/01/17 05/07/20 Sertraline HCl [Zoloft 100mg 200 mg PO DAILY 11/01/17 05/07/20 tablet] losartan 50 mg tablet 50 mg PO DAILY 05/25/19 05/07/20 Previous Rx's Medication Instructions Recorded diclofenac sodium 3 % topical gel 1 applic TOPICAL BID #100 g 03/12/20 Methocarbamol [Robaxin 500mg Tab] 500 mg PO BIDP PRN #30 tab 05/19/20 methylPREDNISolone [Medrol] 4 mg PO DIRECTED 6 Days #21 05/19/20 tab.ds.pk Allergies Allergy/A
[2020-05-19 18:31] VITALS: BP 148/90; PULSE 72; RESP 19; TEMP 36.6; O2SAT 99
== END 2020-05-19 18:32 | disposition home or self-care (01) ==
PROVIDERS: Emergency Provider Nurse Practitioner Family; PCP Internal Medicine
DX: M54.42 Lumbago with sciatica, left side (principal); F41.8 Other specified anxiety disorders; E11.9 Type 2 diabetes mellitus without complications; K21.9 Gastro-esophageal reflux disease without esophagitis; E78.5 Hyperlipidemia, unspecified; I10 Essential (primary) hypertension; Z87.442 Personal history of urinary calculi; E03.9 Hypothyroidism, unspecified; Z79.899 Other long term (current) drug therapy
CPT/HCPCS: 96372; 99201

== ENCOUNTER → 2020-06-12 15:44 | Outpatient (CLI) | payer OTHER, SELFPAY ==
--- NOTE | 2020-06-12 15:52 | XR_ITS ---
PROCEDURE: XR LUMBAR SPINE MIN 4V CLINICAL INDICATION: LOW BACK PAIN COMPARISON: CR LS5 LUMBAR SPINE 5 VIEWS from 12/25/2016 FINDINGS: There is minimal levoscoliosis of the lumbar spine. There is degenerative disc disease at L3-L4. No fracture or dislocation. No lytic or blastic change. Other findings:None. IMPRESSION: Degenerative disc disease L3-L4 with mild scoliosis Dictated by: Soto Romano MD 06/12/2020 17:32 Soto Romano MD in [place] 06/12/2020 17:32
== END ==
PROVIDERS: PCP Internal Medicine; Visit Provider Internal Medicine
DX: M54.5 Low back pain (principal)
CPT/HCPCS: 72110

== ENCOUNTER 2020-08-19 14:06 | Emergency (ER) | payer OTHER, SELFPAY ==
[2020-08-19 15:05] VITALS: BP 138/87; PULSE 91; RESP 19; TEMP 36.6; O2SAT 98; BMI 42.7
--- NOTE | 2020-08-19 15:09 | HMH.EDUTC ---
[facility] [place] Clinical Impression: Viral syndrome Disposition: Home, Self-Care Condition on Discharge: Good Instructions: Preventing the Spread of Coronavirus Discharge Instructions Additional Instructions: Drink plenty of fluids. Take tylenol for pain or fever. Take the medications as directed. Follow up with your regular doctor. GO TO THE ER FOR ANY WORSENING SYMPTOMS Prescriptions: Ondansetron [Zofran 4mg ODT] 4 mg PO Q8HP PRN #12 tab.rapdis PRN Reason: Nausea Transmission Status: Received by [facility] #[id number] Referrals: Narciso Ramos [Primary Care Provider] - Forms: Work/School Release Time of Disposition: 15:33 Medical Decision Making - Medical Records Medical records reviewed: No: I reviewed the patient's medical records. - Mert Inquiry Pt receiving controlled substance: No Vital Signs: 08/19/20 15:05 08/19/20 15:36 Temperature 97.8 F 97.8 F Temperature Source Oral Pulse Rate 91 H Pulse Rate [Right Brachial] 91 H Respiratory Rate 19 19 Blood Pressure 138/87 Blood Pressure [Right Arm] 138/87 Blood Pressure Mean [Right Arm] 104 Blood Pressure Source [Right Arm] Automatic Cuff Blood Pressure Position [Right Arm] Sitting 02 Sat by Pulse Oximetry 98 Oxygen Delivery Method Room Air - Lab Data Lab Results 08/19/20 15:05: Influenza Type A Ag Negative, Influenza Type B Ag Negative [facility] [place] - General Stated complaint: hot,cold achey Time Seen by Provider: 08/19/20 15:13 - History of Present Illness Provider Complaint: He states that since yesterday he has been having periods of chilling. He has a scratchy sore throat and a dry cough. He denies any documented fever. 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 - Related Data Home Medications Medication Instructions Recorded Confirmed Levothyroxine Sodium 100 mcg PO DAILY 11/01/17 05/07/20 [Levothyroxine 50mcg (0.05mg) Tab] Metformin HCl [Metformin HCl ER] 500 mg PO BID 11/01/17 05/07/20 Sertraline HCl [Zoloft 100mg 200 mg PO DAILY 11/01/17 05/07/20 tablet] losartan 50 mg tablet 50 mg PO DAILY 05/25/19 05/07/20 Previous Rx's Medication Instructions Recorded diclofenac sodium 3 % topical gel 1 applic TOPICAL BID #100 g 03/12/20 Methocarbamol [Robaxin 500mg Tab] 500 mg PO BIDP PRN #30 tab 05/19/20 methylPREDNISolone [Medrol] 4 mg PO DIRECTED 6 Days #21 05/19/20 tab.ds.pk Ondansetron [Zofran 4mg ODT] 4 mg PO Q8HP PRN #12 tab.rapdis 08/19/20 Allergies Allergy/AdvReac Type Severity Reaction Status Date / Time No Known Allergies Allergy Verified 05/07/20 15:58 [facility] History - Hepatitis A Screen Attestation statement:: This patient has been screened for Hepatitis A risk factors. I have reviewed the patient's past medical history: Yes 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: Reports:: Anxiety, Depression, Diabetes Mellitus Type 2, Gastroesophageal Reflux Disease(GERD), Hyperlipidemia, Hypertension, Kidney Stones, Migraine, MRSA Denies:: Cancer, Diabetes Mellitus Type 1, Internal Pacemaker Other 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: Reports: Arthritis, Hypothyroidism, Thyroid Disease Other Surgeries: Yes: Colonoscopy, Other (kidney stone removed). No: Pacemaker Amputation: No Fractures: No Comment: Extracorporeal shock wave lithotripsy - Social History Smoking Status: Never smoker Alcohol Intake: never Alcohol Intake Frequency:: holidays/special occasions only Occupational Status: employed Housing: apartment Household Members: none - Psychiatric History Pschychiatric History:: Reports:: Anxiety, Depression Family Hx:: Diabetes, Heart Attack, Stroke, Cancer, Hypertension, Hyperlipidemia, Coronary Artery Disease ROS Obtained: Yes All systems reviewed & no additional complaints - Constitutional Constitutional: Reports system reviewed and no additional complaints, except as docu - Eyes Eyes: Reports system reviewed and no additional complaints, except a
[2020-08-19 15:34] LABS: UTC Influenza A Antigen Negative (Negative); UTC Influenza B Antigen Negative (Negative)
[2020-08-19 15:36] VITALS: BP 138/87; PULSE 91; RESP 19; TEMP 36.6; O2SAT 98
== END 2020-08-19 15:39 | disposition home or self-care (01) ==
PROVIDERS: Emergency Provider Nurse Practitioner Family; PCP Internal Medicine
DX: Z20.828 Contact with and (suspected) exposure to other viral communicable diseases (principal); B34.9 Viral infection, unspecified; F41.8 Other specified anxiety disorders; E11.9 Type 2 diabetes mellitus without complications; K21.9 Gastro-esophageal reflux disease without esophagitis; E78.5 Hyperlipidemia, unspecified; I10 Essential (primary) hypertension; Z87.442 Personal history of urinary calculi; E03.9 Hypothyroidism, unspecified; G43.709 Chronic migraine without aura, not intractable, without status migrainosus
CPT/HCPCS: 87804; 99201; U0003

== ENCOUNTER → 2020-12-24 11:17 | Outpatient (CLI) | payer OTHER, SELFPAY ==
--- NOTE | 2020-12-24 11:35 | ECG_ITS ---
APPROVED REPORT Exam: Resting ECG HR:73 bpm ECG Measurements Heart Rate 73 AXES IN 156 P 54 QRSd 86 QRS -1 QT 384 T 6 QTc 423 Conclusion Normal sinus rhythm Voltage criteria for left ventricular hypertrophy Otherwise a normal ECG Electronically signed by : Narciso Ramos, 12/24/2020 16:44:25
== END ==
PROVIDERS: PCP Internal Medicine; Visit Provider Internal Medicine
DX: R07.9 Chest pain, unspecified (principal)
CPT/HCPCS: 93005

== ENCOUNTER → 2021-02-10 16:00 | Outpatient (CLI) | payer OTHER, SELFPAY ==
--- NOTE | 2021-02-10 16:02 | XR_ITS ---
PROCEDURE: XR CHEST 2V CLINICAL HISTORY: COUGH,PERSISTENT COMPARISON: CR CXR2V XR chest 2V from 11/25/2017 FINDINGS: The cardiomediastinal silhouette and pulmonary vascularity are within normal limits. The lungs are clear without infiltrates, suspicious nodules, or pleural effusions. No acute bony abnormalities. IMPRESSION: No acute findings. Dictated by: Sayra Hernandez 02/10/2021 16:29 Sayra Hernandez in OV 02/10/2021 16:29
== END ==
PROVIDERS: PCP Internal Medicine; Visit Provider Internal Medicine
DX: R05 Cough (principal)
CPT/HCPCS: 71046

== ENCOUNTER → 2021-03-11 14:56 | Outpatient (CLI) | payer OTHER, SELFPAY | PROVIDERS: PCP Internal Medicine; Visit Provider Internal Medicine | DX: R05 Cough (principal); R06.2 Wheezing ==

== ENCOUNTER → 2021-04-14 14:59 | Outpatient (CLI) | payer OTHER, SELFPAY ==
[2021-04-14 15:45] VITALS: PULSE 78; PULSE 8
== END ==
PROVIDERS: PCP Internal Medicine; Visit Provider Internal Medicine
DX: R06.02 Shortness of breath (principal)
CPT/HCPCS: 94060; 94640

== ENCOUNTER → 2021-07-28 17:43 | Outpatient (CLI) | payer OTHER, SELFPAY ==
[2021-07-28 18:29] LABS: Basophils # 0.1 K/mm3 (0-0.2); Basophils % 0.6 % (0.1-2.0); Eosinophils # 0.1 K/mm3 (0.0-0.4); Eosinophils % 0.9 % (0.1-12.0); Hematocrit 45.1 % (42.0-52.0); Hemoglobin 14.3 g/dL (14.1-18.0); Lymphocytes # 2.3 K/mm3 (0.7-4.5); Lymphocytes % 22.8 % (10-50); Mean Corpuscular HGB Conc 31.7 g/dL (31.8-35.4); Mean Corpuscular Hemoglobin 28.6 pg (27.0-31.2); Mean Platelet Volume 9.1 fl (7.4-10.4); Monocytes # 0.5 K/mm3 (0.1-1.0); Monocytes % 5.3 % (1.7-9.3); Neutrophils # 7.1 K/mm3 (1.8-7.8); Neutrophils % 70.3 % (37.0-80.0); Platelet Count 191 K/mm3 (142-424); Red Blood Count 5.01 M/mm3 (4.60-6.20); Red Cell Distribution Width 14.2 % (11.5-17.5)
[2021-07-28 20:00] LABS: Alanine Aminotransferase 26 U/L (12-78); Albumin Level 4.4 g/dl (3.5-5.0); Albumin/Globulin Ratio 1.5 (1.1-1.8); Alkaline Phosphatase 179 U/L (38-126); Anion Gap 16.2 mEq/L (5-15); Aspartate Amino Transferase 47 U/L (17-59); Bilirubin,Total 1.5 mg/dl (0.2-1.3); Blood Urea Nitrogen 11 mg/dl (9-20); Calcium 9.8 mg/dl (8.4-10.2); Carbon Dioxide 29 mmol/L (22.0-30.0); Chloride 94 mmol/L (98-107); Chol/HDL Ratio 4.1 (1-3.5); Cholesterol 165 mg/dl (140-200); Estimated Glomerular Filt Rate 144 ml/min (>60); GFR (African American) 174 ML/MIN (>60); Globulin 2.9 g/dL (1.3-3.2); Glucose 377 mg/dl (74-100); HDL Cholesterol 40 mg/dl (40-60); Potassium 4.2 mmoL/L (3.5-5.1); Sodium 135 mmol/L (136-145); Total Protein,Serum 7.3 g/dl (6.3-8.2); Triglycerides 129 mg/dl (30-150); VLDL Cholesterol 26 mg/dL (0-40)
[2021-07-28 20:11] LABS: Direct LDL Cholesterol 93.62 mg/dL (100-129)
[2021-07-28 20:27] LABS: Prostate Specific Ag Screen 0.3 ng/ml (0.0-4.0)
[2021-07-28 20:53] LABS: Hemoglobin A1C > 14.0 % (4.0-6.0)
== END ==
PROVIDERS: Visit Provider Internal Medicine
DX: E11.9 Type 2 diabetes mellitus without complications; E78.5 Hyperlipidemia, unspecified; N40.1 Benign prostatic hyperplasia with lower urinary tract symptoms; Z12.5 Encounter for screening for malignant neoplasm of prostate; Z79.84 Long term (current) use of oral hypoglycemic drugs; E66.01 Morbid (severe) obesity due to excess calories; Z68.41 Body mass index [BMI] 40.0-44.9, adult; I10 Essential (primary) hypertension; R77.0 Abnormality of albumin
CPT/HCPCS: 80053; 80061; 82043; 83036; 85025; G0103

== ENCOUNTER → 2021-09-29 09:54 | Outpatient (CLI) | payer OTHER, SELFPAY | PROVIDERS: Visit Provider Surgery | DX: Z01.812 Encounter for preprocedural laboratory examination (principal); Z11.52 Encounter for screening for COVID-19; Z12.11 Encounter for screening for malignant neoplasm of colon | CPT/HCPCS: C9803; U0003; U0005 ==

== ENCOUNTER 2021-10-01 09:23 | Day surgery (SDC) | payer OTHER, SELFPAY ==
[2021-09-24 11:34] VITALS: BMI 39.3
[2021-10-01 09:53] VITALS: BP 141/71; PULSE 78; RESP 16; TEMP 36.8; O2SAT 98
--- NOTE | 2021-10-01 10:00 | HMH.ANESCL ---
[facility] Anesthesia Checklist - Structural Data Planned Operative Procedure/s: colonoscopy Consent for Planned Operative Procedure(s) Verified: Yes - Airway Assessment C-Spine Mobility Assessed: Yes TMJ Mobility Assessed: Yes Dentition: Poor Dentition - Neurological Assessment Level of Consciousness: Awake, Alert, Appropriate - Anesthesia Plan Anesthesia Risk discussed: Yes Anesthesia Plan: Verified ASA Class: II Anesthesia Type: MAC [facility] History I have reviewed the patient's past medical history: Yes 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: Reports:: Anxiety, Depression, Diabetes Mellitus Type 2, Gastroesophageal Reflux Disease(GERD), Hyperlipidemia, Hypertension, Kidney Stones, Migraine, MRSA Denies:: Cancer, Diabetes Mellitus Type 1, Internal Pacemaker, Seizures *Have you ever received a pneumonia vaccine?: No *Have you received a flu vaccine this season?: Yes Other 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: Reports: Arthritis, Hypothyroidism, Thyroid Disease Anesthesia experience/problems:: none Other Surgeries: Yes: Colonoscopy, Other (kidney stone removed). No: Pacemaker Amputation: No Fractures: No - *Social History Last grade of school completed: High school graduate Smoking Status: Never smoker Alcohol Intake: never Alcohol Intake Frequency:: holidays/special occasions only Substance Use Type: denies use *Occupational Status:: employed Housing: house Household Members: none *Travel in the last 8 weeks: None - Psychiatric History Pschychiatric History:: Reports:: Anxiety, Depression Family Hx:: Diabetes, Heart Attack, Stroke, Cancer, Hypertension, Hyperlipidemia, Coronary Artery Disease
[2021-10-01 10:12] VITALS: O2SAT 98
[2021-10-01 11:05] VITALS: BP 119/62; PULSE 83; RESP 16; TEMP 36.3; O2SAT 91
--- NOTE | 2021-10-01 11:05 | HMH.SCOPE ---
- Procedure: Date: 10/01/21 Patient Date of :: 1975 Procedure Performed:: Total colonoscopy with multiple polypectomy Indications:: Patient is a 46-year-old male referred by Dr. Narciso Ramos for screening colonoscopy. Patient does state that he had had a colonoscopy approximately 15 years ago for bowel issues . Performing Provider:: Jeffy Boone MD Referring Provider:: Narciso Ramos MD Sedation:: MAC sedation Procedure:: Patient was taken to endoscopy procedure room and positioned in lateral decubitus position. Adequate intravenous sedation was achieved with anesthesia titration of propofol. Digital examination was performed which revealed diminished sphincter tone. Variable stiffness Olympus colonoscope was inserted via the anus. Was advanced to the cecum. Colonic preparation was quite poor. Ileocecal valve and appendiceal orifice was identified. In the ascending colon there was a rather large polyp measuring 15 to 20 mm. This was removed with hot snare. Retrieval required macerating the polyp using the [place] net and snare to remove it in a piecemeal fashion. In the descending colon there was a small polyp removed with hot snare. In the sigmoid colon there is a small polyp removed with cold snare with retrieval using biopsy forceps. The rectosigmoid region there is a tiny diminutive polyp removed with cold snare. Retroflexion within the rectum revealed no evidence of any pathologic internal hemorrhoids. He did have a few sigmoid diverticuli. Findings:: Poor colonic preparation Polyps as noted above, most notable ascending colon polyp measuring 15 to 20 mm requiring maceration for retrieval Rare sigmoid diverticulosis Recommendations:: Given the poor colonic preparation recommend repeat colonoscopy 6 to 12 months with aggressive bowel regimen Complications:: None immediately apparent Estimated blood obtained (mL): 2
[2021-10-01 11:15] VITALS: BP 123/70; PULSE 77; RESP 16; TEMP 36.3; O2SAT 97
[2021-10-01 11:25] VITALS: BP 130/67; PULSE 70; RESP 18; TEMP 36.3; O2SAT 99
[2021-10-01 11:40] VITALS: BP 135/74; PULSE 68; RESP 18; TEMP 36.3; O2SAT 98
[2022-07-02 10:55] LABS: POC Glucose,Bedside 126 (70-110)
== END 2021-10-01 11:40 | disposition home or self-care (01) ==
LOC: OUTP 09:24
PROVIDERS: PCP Internal Medicine; Visit Provider Surgery
PROC: 0DJD8ZZ Inspection of Lower Intestinal Tract, Via Natural or Artificial Opening Endoscopic (ICD-10-PCS; CPT 45385; principal; 2021-10-01 10:30)
DX: Z12.11 Encounter for screening for malignant neoplasm of colon (principal); K63.5 Polyp of colon; F32.A Depression, unspecified; F41.9 Anxiety disorder, unspecified; E11.9 Type 2 diabetes mellitus without complications; K21.9 Gastro-esophageal reflux disease without esophagitis; E78.5 Hyperlipidemia, unspecified; I10 Essential (primary) hypertension; G43.909 Migraine, unspecified, not intractable, without status migrainosus; Z86.14 Personal history of Methicillin resistant Staphylococcus aureus infection
CPT/HCPCS: 45385; 82962

== ENCOUNTER → 2021-12-23 16:26 | Outpatient (CLI) | payer OTHER, SELFPAY | PROVIDERS: PCP Internal Medicine; Visit Provider Internal Medicine | DX: Z20.822 Contact with and (suspected) exposure to COVID-19 (principal) | CPT/HCPCS: C9803; U0003; U0005 ==

== ENCOUNTER 2021-12-25 11:00 | Emergency (ER) | payer OTHER, SELFPAY ==
[2021-12-25 13:00] VITALS: BP 147/80; PULSE 90; RESP 18; TEMP 37.2; O2SAT 98; BMI 40.6
[2021-12-25 13:41] LABS: Strep Scrn Group A (Rapid) Negative (Negative)
--- NOTE | 2021-12-25 13:48 | HMH.EDUTC ---
[facility] [place] Impression: Sinusitis Qualifiers: Sinusitis location: unspecified location Chronicity: unspecified Qualified Code(s): J32.9 - Chronic sinusitis, unspecified Disposition: Home, Self-Care Condition on Discharge: Good Instructions: Sinusitis, DI for Sinusitis, Amoxicillin and Clavulanic Acid Additional Instructions: *Monitor Temp, Over the counter Motrin or Tylenol as directed/as needed Tylenol every 4 hours and Motrin every 6 hours (as long as your family doctor has told you that you can take it) for fever or pain. and straight to ER if unable to lower temp less than 101.0 after medication given *Warm salt water gargles may help to soothe the throat *Throat Lozenges *Warm fluids like tea with honey may help to soothe the throat *Sleep elevated *Humidifier/Vaporizer *Flonase 2 sprays in each nostril daily but be aware that it may take 2-3 days before you notice improvement Your throat swab was sent for culture. Those results are typically sent to your primary care. Be sure to follow up in 2-3 days with your family doctor/primary care physician if no improvement so they can review those result and treat if necessary. If you don?t have a primary care doctor, I recommend you get one but in the mean time, you will have to return to a walk in clinic Follow up IMMEDIATELY for new or worsening symptoms or no Noticeable improvement over the next 48-72 hours. 911 for difficulty breathing or swallowing Prescriptions: Benzonatate [Benzonatate 100mg cap] 100 mg PO Q8HP PRN #15 cap PRN Reason: Cough Transmission Status: Pending to [facility] Amoxicillin/Potassium Clav [Amox-Clav 875-125 mg Tablet] 1 tab PO BID #14 tab Transmission Status: Pending to [facility] Fluticasone Propionate [Flonase 50mcg nasal spray 16gm] 1 spr NS DAILY #1 each Transmission Status: Pending to [facility] Referrals: Narciso Ramos [Primary Care Provider] - As needed Forms: Work/School Release Medical Decision Making - Mert Inquiry Pt receiving controlled substance: No Mert was queried for this patient: No Vital Signs: 12/25/21 13:00 Temperature 99.0 F Temperature Source Oral Pulse Rate [Right Brachial] 90 Respiratory Rate 18 Blood Pressure [Right Arm] 147/80 H Blood Pressure Mean [Right Arm] 102 Blood Pressure Source [Right Arm] Automatic Cuff Blood Pressure Position [Right Arm] Sitting 02 Sat by Pulse Oximetry 98 Oxygen Delivery Method Room Air - Lab Data Lab results reviewed: Yes: I reviewed the patient's lab results. Lab Results 12/25/21 13:08: Group A Strep Rapid Negative Orders (Tests/Meds): ORDERS Category Date Time Status Strep Screen Confirmation Stat Micro 12/25/21 13:08 [place] [facility] [place] - General Stated complaint: congestion, sore throat Time Seen by Provider: 12/25/21 13:48 Mode of Arrival: Ambulatory Source of Information: Patient Limitations: No Limitations Description of Symptoms (Recalled from Triage Doc. by RN): PATIENT C/O SORE THROAT, RUNNY NOSE, AND SINUS PRESSURE X 1 WEEK HEENT Symptoms (Recalled from RN notes): Yes Resp Symptoms (Recalled from RN notes): No Skin Symptoms (Recalled from RN notes): No MS Symptoms (Recalled from RN notes): No Functional Status (Recalled from RN notes): WNL - History of Present Illness Provider Complaint: Patient states that for over a week he has been having sinus pain and pressure, sore throat and cough States that he thought he had the flu last week but now his mucous went from clear to yellowish green and feels like he has a sinus infection - Related Data Home Medications Medication Instructions Recorded Confirmed Levothyroxine Sodium 100 mcg PO DAILY 11/01/17 10/28/21 [Levothyroxine 50mcg (0.05mg) Tab] Metformin HCl [Metformin HCl ER] 500 mg PO BID 11/01/17 10/28/21 losartan 50 mg tablet 50 mg PO DAILY 05/25/19 10/28/21 Atorvastatin Calcium [Lipitor 10mg 10
[2021-12-25 13:57] VITALS: BP 147/80; PULSE 90; RESP 18; TEMP 37.2; O2SAT 98
== END 2021-12-25 14:03 | disposition home or self-care (01) ==
PROVIDERS: Emergency Provider Nurse Practitioner; PCP Internal Medicine
DX: J32.9 Chronic sinusitis, unspecified (principal); I10 Essential (primary) hypertension; K21.9 Gastro-esophageal reflux disease without esophagitis; E78.5 Hyperlipidemia, unspecified; E11.9 Type 2 diabetes mellitus without complications; E03.9 Hypothyroidism, unspecified; N20.0 Calculus of kidney; G43.909 Migraine, unspecified, not intractable, without status migrainosus; M19.90 Unspecified osteoarthritis, unspecified site; F32.A Depression, unspecified; F41.9 Anxiety disorder, unspecified; Z79.51 Long term (current) use of inhaled steroids; Z79.52 Long term (current) use of systemic steroids; Z79.899 Other long term (current) drug therapy; Z86.14 Personal history of Methicillin resistant Staphylococcus aureus infection; Z82.49 Family history of ischemic heart disease and other diseases of the circulatory system; Z80.9 Family history of malignant neoplasm, unspecified; Z83.438 Family history of other disorder of lipoprotein metabolism and other lipidemia
CPT/HCPCS: 87430; 99213; G0463

== ENCOUNTER 2022-03-22 08:08 | Emergency (ER) | payer OTHER, SELFPAY ==
[2022-03-22 08:33] VITALS: BP 147/99; PULSE 73; RESP 17; TEMP 36.6; O2SAT 97; BMI 40.6
--- NOTE | 2022-03-22 08:36 | HMH.EDUTC ---
[facility] [place] Clinical Impression: Low back pain with radiation, Lumbosacral radiculopathy due to degenerative joint disease of spine Sciatica Qualifiers: Laterality: left Qualified Code(s): M54.32 - Sciatica, left side Disposition: Home, Self-Care Condition on Discharge: Good Instructions: Low Back Pain, DI for Low Back Pain Additional Instructions: Go home and rest. It would be best if you rested tomorrow too. No heavy lifting. No twisting. Take the oral medications as directed. The muscle relaxer (cyclobenzaprine--Flexeril) will make you drowsy, so don't drive or operate heavy machinery after taking it. Don't start the oral steroids (medrol dose pack) until tomorrow, since you had the shots in here today. Follow up with your regular doctor. GO TO THE ER FOR ANY WORSENING SYMPTOMS OR CONCERN, ESPECIALLY BOWEL OR BLADDER ISSUES, SADDLE AREA NUMBNESS, FEVER, ETC Prescriptions: Cyclobenzaprine HCl [Cyclobenzaprine 10mg Tab] 10 mg PO BIDP PRN #20 tab PRN Reason: Muscle Spasm Transmission Status: Received by [facility] methylPREDNISolone [Medrol] 4 mg PO DIRECTED 6 Days #21 packet Transmission Status: Received by [facility] Referrals: Narciso Ramos MD [Primary Care Provider] - Forms: Work/School Release Time of Disposition: 08:57 Medical Decision Making - Medical Records Medical records reviewed: No: I reviewed the patient's medical records. - Mert Inquiry Pt receiving controlled substance: No Vital Signs: 03/22/22 08:33 03/22/22 09:03 Temperature 97.8 F 97.8 F Temperature Source Oral Pulse Rate 73 Pulse Rate [Left Radial] 73 Respiratory Rate 17 17 Blood Pressure 147/99 H Blood Pressure [Right Arm] 147/99 H Blood Pressure Mean [Right Arm] 115 02 Sat by Pulse Oximetry 97 Orders (Tests/Meds): ED MEDICATIONS Discontinued Medications Generic Name Dose Route Start Last Admin Trade Name Freq PRN Reason Stop Dose Admin Methylprednisolone Sodium Succinate 125 mg 03/22/22 08:41 03/22/22 08:49 Methylprednisolone Sod Succ 125mg Vial IM 03/22/22 08:42 125 mg ONCE ONE Administration [facility] [place] - General Stated complaint: back pain Time Seen by Provider: 03/22/22 08:37 Description of Symptoms (Recalled from Triage Doc. by RN): patient comes in today with complaints of back pain. patient states that it has been going on for almost 2 weeks HEENT Symptoms (Recalled from RN notes): No Resp Symptoms (Recalled from RN notes): No Skin Symptoms (Recalled from RN notes): No MS Symptoms (Recalled from RN notes): Yes Functional Status (Recalled from RN notes): wnl - History of Present Illness Provider Complaint: He states that for the past 2 days he has had worsening low back pain. The pain radiates down his left leg at times. He has a history of having episodes of pain like this. He denies any known injury. He denies any bowel or bladder issues. - Related Data Home Medications Medication Instructions Recorded Confirmed Levothyroxine Sodium 100 mcg PO DAILY 11/01/17 10/28/21 [Levothyroxine 50mcg (0.05mg) Tab] Metformin HCl [Metformin HCl ER] 500 mg PO BID 11/01/17 10/28/21 losartan 50 mg tablet 50 mg PO DAILY 05/25/19 10/28/21 Atorvastatin Calcium [Lipitor 10mg 10 mg PO HS 10/01/21 10/28/21 Tab] Omeprazole [Omeprazole 40mg 40 mg PO DAILY 10/01/21 10/28/21 Capsule] glipiZIDE [Glipizide ER] 5 mg PO BID 10/01/21 10/28/21 Previous Rx's Medication Instructions Recorded Methocarbamol [Robaxin 500mg Tab] 500 mg PO BIDP PRN #30 tab 05/19/20 Benzonatate [Benzonatate 100mg 100 mg PO Q8HP PRN #15 cap 12/25/21 cap] Fluticasone Propionate [Flonase 1 spr NS DAILY #1 each 12/25/21 50mcg nasal spray 16gm] aripiprazole 10 mg tablet 10 mg PO QHS #30 tab 03/12/22 Cyclobenzaprine HCl 10 mg PO BIDP PRN #20 tab 03/22/22 [Cyclobenzaprine 10mg Tab] methylPREDNISolone [Medrol] 4 mg PO DIRECTED 6 Days #2
[2022-03-22 09:03] VITALS: BP 147/99; PULSE 73; RESP 17; TEMP 36.6
== END 2022-03-22 09:04 | disposition home or self-care (01) ==
PROVIDERS: Emergency Provider Nurse Practitioner Family; PCP Internal Medicine
DX: M54.32 Sciatica, left side (principal); M54.50 Low back pain, unspecified; M47.27 Other spondylosis with radiculopathy, lumbosacral region
CPT/HCPCS: 96372; 99212; G0463

== ENCOUNTER → 2022-06-10 10:29 | Outpatient (CLI) | payer OTHER, SELFPAY | PROVIDERS: PCP Internal Medicine; Visit Provider Surgery | DX: Z01.812 Encounter for preprocedural laboratory examination (principal); Z20.822 Contact with and (suspected) exposure to COVID-19; Z12.11 Encounter for screening for malignant neoplasm of colon | CPT/HCPCS: C9803; U0003; U0005 ==

== ENCOUNTER 2022-06-12 05:59 | Day surgery (SDC) | payer OTHER, SELFPAY ==
[2022-06-09 12:56] VITALS: BMI 40.0
[2022-06-12 06:27] LABS: POC Glucose,Bedside 106 (70-110)
[2022-06-12 06:29] VITALS: BP 150/69; PULSE 72; RESP 18; TEMP 36.6; O2SAT 98
[2022-06-12 07:22] VITALS: O2SAT 98
--- NOTE | 2022-06-12 07:33 | EXP.ANES.CKL ---
PFSH PFSH 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 (Updated 06/12/22 @ 06:38 by Michelle Meade RN) Allergies Diabetes History of back pain History of hypothyroidism Hyperlipidemia Hypertension Migraine Sinus headache Sleep apnea Urinary tract infection Yeast dermatitis Surgical History (Updated 06/12/22 @ 06:23 by Michelle Meade RN) Hx of colonoscopy Family History Other No significant family history Social History (Updated 06/12/22 @ 06:29 by Michelle Meade RN) Smoking Status: Never smoker second hand exposure: No alcohol intake: never substance use type: denies use current occupational status: employed Travel in the last 8 weeks: None household members: none housing: house number of children: 0 current occupation: [employer] current occupational exposures/hazards: No caffeine: Yes [facility] Anesthesia Checklist Patient Identification Patient Identification: Arm Band Structural Data Admitted From: Home Planned Operative Procedure/s: colonoscopy Consent for Planned Operative Procedure(s) Verified: Yes Verified Documents: Surgical Consent and History and Physical NPO Status Verified Time NPO: 00:00 Additional verifications Anesthesia Reactions: No Airway Assessment C-Spine Mobility Assessed: Yes TMJ Mobility Assessed: Yes Dentition: Good Dentition Neurological Assessment Level of Consciousness: Awake and Alert Anesthesia Plan Anesthesia Risk discussed: Yes Anesthesia Plan: Verified ASA Class: III Anesthesia Type: MAC
--- NOTE | 2022-06-12 08:00 | P.PCN_ITS ---
Procedure: Date: 06/12/22 Patient Date of :: 1975 Procedure Performed:: Total colonoscopy to terminal ileum with polypectomy using snare and biopsy Indications:: Patient is a 47-year-old male whom I had performed initial screening colonoscopy on on 10/01/2021. At that time he was found to have a very poor preparation. He had a large ascending polyp measuring about 20 mm which was a tubular adenoma. He also had a descending tubular adenoma. There was rare diverticulosis. Given the poor preparation recommendations were for early follow-up colonoscopy. Plan was for colonoscopy with GoLytely with MiraLAX for several weeks leading up to colonoscopy. Performing Provider:: Jeffy Booen MD Referring Provider:: Narciso Ramos MD Sedation:: MAC sedation Procedure:: Patient was taken to endoscopy procedure room. He was positioned in lateral decubitus position. Adequate intravenous sedation was achieved with anesthesia titration of propofol. Digital examination was performed which was unremark able. Variable stiffness Olympus colonoscope was inserted via the anus. It was advanced to the cecum. Colonic preparation was poor to fair and fair to decent visualization was achieved with prolonged thorough irrigation and suctioning. Ileocecal valve and appendiceal orifice were identified. Colonoscope was advanced a short distance into the terminal ileum. Limited visualization was achieved of the terminal ileum but this appeared grossly normal. Colonoscope was slowly withdrawn through the colon. He had pandiverticulosis. There was a adenomatous appearing polyp at the hepatic flexure removed with cold snare. In the descending colon there was an adenomatous appearing polyp removed with cold snare. In the distal descending colon there was initially felt to be possible inverted diverticulum but this appeared to be a small polyp which was removed in a piecemeal fashion using biopsy forceps. The proximal sigmoid colon there were a couple of diminutive polyps removed with cold biopsy forceps. Similarly in the mid sigmoid colon there was a tiny diminutive polyp removed with cold biopsy forceps. Retroflexion within the rectum revealed internal anal papillae. Colonoscope was withdrawn. Findings:: Fair to poor preparation Pandiverticulosis Polyps as noted above Internal anal papillae Recommendations:: Pending pathology likely repeat colonoscopy in 12 months with aggressive bowel regimen Complications:: None immediately apparent Estimated blood obtained (mL): 3
[2022-06-12 08:02] VITALS: BP 117/67; PULSE 70; RESP 18; TEMP 36.3; O2SAT 99
[2022-06-12 08:12] VITALS: BP 114/61; PULSE 69; RESP 18; TEMP 36.3; O2SAT 100
[2022-06-12 08:22] VITALS: BP 125/66; PULSE 66; RESP 18; TEMP 36.3; O2SAT 99
[2022-06-12 08:34] VITALS: BP 116/63; PULSE 57; RESP 18; TEMP 36.3; O2SAT 100
== END 2022-06-12 08:34 | disposition home or self-care (01) ==
PROVIDERS: PCP Internal Medicine; Visit Provider Surgery
PROC: 0DJD8ZZ Inspection of Lower Intestinal Tract, Via Natural or Artificial Opening Endoscopic (ICD-10-PCS; CPT 45380; principal; 2022-06-12 07:30)
DX: Z12.11 Encounter for screening for malignant neoplasm of colon (principal); K63.5 Polyp of colon; K57.90 Diverticulosis of intestine, part unspecified, without perforation or abscess without bleeding; Z79.899 Other long term (current) drug therapy
CPT/HCPCS: 45380; 45385; 82962; J2704

== ENCOUNTER → 2022-07-10 16:31 | Outpatient (CLI) | payer OTHER, SELFPAY | LOC: LAB.DROPOF 16:31 | PROVIDERS: PCP Internal Medicine; Visit Provider Internal Medicine | DX: L03.311 Cellulitis of abdominal wall (principal); B95.7 Other staphylococcus as the cause of diseases classified elsewhere | CPT/HCPCS: 87070; 87077; 87186; 87205 ==

== ENCOUNTER → 2022-07-24 16:52 | Outpatient (CLI) | payer OTHER, SELFPAY ==
[2022-07-24 18:53] LABS: Alanine Aminotransferase 27 U/L (12-78); Albumin Level 4.1 g/dl (3.5-5.0); Albumin/Globulin Ratio 1.7 (1.1-1.8); Alkaline Phosphatase 156 U/L (38-126); Aspartate Amino Transferase 48 U/L (17-59); Bilirubin,Total 1.1 mg/dl (0.2-1.3); Blood Urea Nitrogen 11 mg/dl (9-20); Calcium 9.2 mg/dl (8.4-10.2); Carbon Dioxide 26 mmol/L (22.0-30.0); Chloride 100 mmol/L (98-107); Chol/HDL Ratio 3.2 (1-3.5); Cholesterol 133 mg/dl (140-200); Estimated Glomerular Filt Rate 79 ml/min (>60); GFR (African American) 96 ML/MIN (>60); Globulin 2.4 g/dL (1.3-3.2); Glucose 133 mg/dl (74-100); HDL Cholesterol 41 mg/dl (40-60); Sodium 141 mmol/L (136-145); Total Protein,Serum 6.5 g/dl (6.3-8.2); Triglycerides 96 mg/dl (30-150); VLDL Cholesterol 19 mg/dL (0-40)
[2022-07-24 19:07] LABS: Microalbumin/Creatinine Ratio 18.7
[2022-07-24 19:12] LABS: Direct LDL Cholesterol 74.35 mg/dL (100-129)
[2022-07-24 19:22] LABS: Creatinine,Urine Random 280 mg/dL (Not Estab.)
[2022-07-24 19:32] LABS: Anion Gap 19.3 mEq/L (5-15); Potassium 4.3 mmoL/L (3.5-5.1)
== END ==
LOC: LAB.DROPOF 16:53
PROVIDERS: PCP Internal Medicine; Visit Provider Internal Medicine
DX: E11.9 Type 2 diabetes mellitus without complications (principal); E03.9 Hypothyroidism, unspecified; E78.5 Hyperlipidemia, unspecified; F41.9 Anxiety disorder, unspecified; I10 Essential (primary) hypertension; L02.221 Furuncle of abdominal wall; E66.01 Morbid (severe) obesity due to excess calories; Z68.41 Body mass index [BMI] 40.0-44.9, adult; Z79.84 Long term (current) use of oral hypoglycemic drugs
CPT/HCPCS: 80053; 80061; 82043; 82570; 83036; 84443

== ENCOUNTER → 2022-10-07 19:40 | Outpatient (CLI) | payer OTHER, SELFPAY ==
[2022-10-07 21:53] LABS: Hemoglobin A1C 6.6 % (4.0-6.0)
[2022-10-09 09:12] LABS: Testosterone,Total 524 ng/dL (264-916)
== END ==
PROVIDERS: PCP Internal Medicine; Visit Provider Internal Medicine
DX: E11.9 Type 2 diabetes mellitus without complications (principal); I10 Essential (primary) hypertension; N52.9 Male erectile dysfunction, unspecified; E66.01 Morbid (severe) obesity due to excess calories; Z79.84 Long term (current) use of oral hypoglycemic drugs
CPT/HCPCS: 83036; 84403

== ENCOUNTER 2022-11-04 10:06 | Emergency (ER) | payer OTHER, SELFPAY ==
--- NOTE | 2022-11-04 10:09 | EXP.UTC ---
Discharge Plan Disposition Patient Disposition: Home, Self-Care Condition: Good Prescriptions Prescriptions: New cyclobenzaprine 10 mg Tablet 10 mg PO BID PRN (Reason: Muscle Spasm) Qty: 20 0RF methylprednisolone 4 mg Tablets,Dose Pack 4 mg PO DIRECTED Qty: 21 0RF No Action aripiprazole [Abilify] 10 mg tablet 10 mg PO QHS Qty: 90 0RF metformin 500 MG tablet extended release 24 hr 500 mg PO BID Label Comments: atorvastatin 10 MG tablet 10 mg PO HS glipizide 5 MG tablet extended release 24hr 10 mg PO BID omeprazole 10 mg Capsule,Delayed Release(Dr/Ec) 10 mg PO DAILY Referrals Follow up/Referrals: Narciso Ramos MD [Primary Care Provider] - See instructions Activity Restrictions/Add. Instructions Additional Instructions/Restrictions: Go home and rest. It would be best if you rested tomorrow too. No heavy lifting. No twisting. Take the oral medications as directed. The muscle relaxer (cyclobenzaprine--Flexeril) will make you drowsy, so don't drive or operate heavy machinery after taking it. Don't start the oral steroids (medrol dose pack) until tomorrow, since you had the shots in here today. Follow up with your regular doctor. GO TO THE ER FOR ANY WORSENING SYMPTOMS OR CONCERN, ESPECIALLY BOWEL OR BLADDER ISSUES, SADDLE AREA NUMBNESS, FEVER, ETC Clinical Impressions Clinical Impression: Low back pain due to bilateral sciatica Stand Alone Forms Stand Alone Forms: Work/School Release Instructions Patient Instructions: DI for Low Back Pain, DI for Sciatica Discharge ED Provider: Cecil Chavez [facility] General Stated complaint: Back pain no accident Time Seen by Provider: 11/04/22 10:09 History of Present Illness Provider Complaint: He states that he has had low back pain that radiates down his right leg for the past 2 days. He denies any injury. He does have a history of getting sciatica at times. Related Data Home Medications Medication Instructions Recorded Confirmed metformin 500 mg tablet,extended 500 mg PO BID DIABETIC 11/01/17 11/04/22 release 24 hr atorvastatin 10 mg tablet 10 mg PO HS Cholesterol 10/01/21 11/04/22 glipizide 5 mg tablet, extended 10 mg PO BID Diabetes 12/29/21 02/01/23 release 24 hr omeprazole 10 mg capsule,delayed 10 mg PO DAILY Reflux/Acid reflux 06/12/22 11/04/22 release Previous Rx's Medication Instructions Recorded aripiprazole 10 mg tablet (Abilify) 10 mg PO QHS Depression #90 tabs 10/29/22 cyclobenzaprine 10 mg tablet 10 mg PO BID PRN Muscle Spasm #20 11/04/22 tabs methylprednisolone 4 mg tablets in 4 mg PO DIRECTED #21 tabs 11/04/22 a dose pack Allergies Allergy/AdvReac Type Severity Reaction Status Date / Time No Known Allergies Allergy Verified 11/04/22 10:26 [facility] Disclaimer: The information contained in this section may have been updated after the patient was seen, as this information can be updated by other users. 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 Allergies Diabetes History of back pain History of hypothyroidism Hyperlipidemia Hypertension Migraine Mood disorder Sinus headache Sleep apnea Urinary tract infection Yeast dermatitis Surgical History Hx of colonoscopy Family History Other No significant family history Social History Smoking Status: Never smoker second hand exposure: No alcohol intake: never substance use type: denies use current occupational status: employed Travel in the last 8 weeks: None household members: none housing: house number of children: 0 current occupation: [employer] current occupational exposures/hazards: No caffeine: Yes ROS Obtained: Yes All systems reviewed & no additional complaints except as docu
[2022-11-04 10:15] VITALS: BP 145/72; PULSE 81; RESP 20; TEMP 37; O2SAT 98; BMI 40.6
[2022-11-04 11:33] VITALS: BP 145/72; PULSE 81; RESP 20; TEMP 37; O2SAT 98
== END 2022-11-04 11:32 | disposition home or self-care (01) ==
PROVIDERS: Emergency Provider Nurse Practitioner Family; PCP Internal Medicine
DX: M54.41 Lumbago with sciatica, right side (principal)
CPT/HCPCS: 96372; 99212; 99214; G0463

== ENCOUNTER 2023-02-27 17:54 | Emergency (ER) | payer OTHER, SELFPAY ==
[2023-02-27 17:55] VITALS: BP 178/78; PULSE 76; RESP 18; TEMP 36.9; O2SAT 98; BMI 41.6
--- NOTE | 2023-02-27 18:19 | EXP.UTC ---
Discharge Plan Disposition Patient Disposition: Home, Self-Care Condition: Good Prescriptions Prescriptions: New cyclobenzaprine 5 mg tablet 5 mg PO HS PRN (Reason: muscle spasm) Qty: 7 0RF No Action aripiprazole [Abilify] 10 mg tablet 10 mg PO QHS Qty: 90 0RF metformin 500 MG tablet extended release 24 hr 500 mg PO BID Label Comments: atorvastatin 10 MG tablet 10 mg PO HS glipizide 5 MG tablet extended release 24hr 10 mg PO BID omeprazole 10 mg Capsule,Delayed Release(Dr/Ec) 10 mg PO DAILY cyclobenzaprine 10 mg Tablet 10 mg PO BID PRN (Reason: Muscle Spasm) Qty: 20 0RF Referrals Follow up/Referrals: Narciso Ramos MD [Primary Care Provider] - See instructions Activity Restrictions/Add. Instructions Additional Instructions/Restrictions: follow up with pcp for more work up if symptoms worsen return or be seen in ed med as ordered monitor glucose while on steroids Clinical Impressions Clinical Impression: Low back pain Instructions Patient Instructions: Low Back Pain, DI for Low Back Pain Discharge ED Provider: Matilda ([facility] [place] General Stated complaint: back pain Mode of Arrival: Ambulatory Source of Information: Patient Limitations: No Limitations Time Seen by Provider: 02/27/23 18:20 Description of Symptoms (Recalled from Triage Doc. by RN): back spasms since wednesday HEENT Symptoms (Recalled from RN notes): Yes Resp Symptoms (Recalled from RN notes): No Skin Symptoms (Recalled from RN notes): No MS Symptoms (Recalled from RN notes): No Functional Status (Recalled from RN notes): n/a History of Present Illness Provider Complaint: 48 yr old male presents for low back pain- pt states he has these spasms every few months and comes in for injection and they improve. no bb symptoms. no radiating pain. pt states he has been working alot and it has caused his chronic low back pain to act up Related Data Home Medications Medication Instructions Recorded Confirmed metformin 500 mg tablet,extended 500 mg PO BID DIABETIC 11/01/17 01/25/23 release 24 hr atorvastatin 10 mg tablet 10 mg PO HS Cholesterol 10/01/21 01/25/23 glipizide 5 mg tablet, extended 10 mg PO BID Diabetes 10/01/21 01/25/23 release 24 hr omeprazole 10 mg capsule,delayed 10 mg PO DAILY Reflux/Acid reflux 06/12/22 01/25/23 release Previous Rx's Medication Instructions Recorded aripiprazole 10 mg tablet (Abilify) 10 mg PO QHS Depression #90 tabs 10/29/22 cyclobenzaprine 10 mg tablet 10 mg PO BID PRN Muscle Spasm #20 11/04/22 tabs cyclobenzaprine 5 mg tablet 5 mg PO HS PRN muscle spasm #7 tabs 02/27/23 Allergies Allergy/AdvReac Type Severity Reaction Status Date / Time No Known Allergies Allergy Verified 02/27/23 18:08 Worker's Comp Is this a Worker's Comp case?: No [facility] Disclaimer: The information contained in this section may have been updated after the patient was seen, as this information can be updated by other users. 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
[2023-02-27 19:02] VITALS: BP 123/76; PULSE 81; RESP 18; TEMP 37.3; O2SAT 99
== END 2023-02-27 19:01 | disposition home or self-care (01) ==
PROVIDERS: Emergency Provider Nurse Practitioner Family; PCP Internal Medicine
DX: M54.50 Low back pain, unspecified (principal); E11.9 Type 2 diabetes mellitus without complications; E78.5 Hyperlipidemia, unspecified; I10 Essential (primary) hypertension; G47.30 Sleep apnea, unspecified; F39 Unspecified mood [affective] disorder; Z79.84 Long term (current) use of oral hypoglycemic drugs
CPT/HCPCS: 96372; 99212; 99214; G0463

== ENCOUNTER 2023-05-29 18:46 | Emergency (ER) | payer OTHER, SELFPAY ==
[2023-05-29 18:47] VITALS: BP 160/102; PULSE 102; RESP 18; TEMP 37.3; O2SAT 97; BMI 43.4
--- NOTE | 2023-05-29 18:52 | EXP.UTC ---
Discharge Plan Disposition Patient Disposition: Home, Self-Care Condition: Good Prescriptions Prescriptions: New promethazine-DM 6.25-15 mg/5 mL Syrup 5 ml PO Q6H PRN (Reason: Cough) Qty: 180 0RF prednisone [prednisone] 20 mg tablet 20 mg PO BID 5 Days Qty: 10 0RF amoxicillin-pot clavulanate 875-125 mg Tablet 1 tab PO Q12H Qty: 20 0RF No Action aripiprazole [Abilify] 10 mg tablet 10 mg PO QHS Qty: 90 0RF metformin 500 MG tablet extended release 24 hr 500 mg PO BID Patient Comments: atorvastatin 10 MG tablet 10 mg PO HS glipizide 5 MG tablet extended release 24hr 10 mg PO BID omeprazole 10 mg Capsule,Delayed Release(Dr/Ec) 10 mg PO DAILY cyclobenzaprine 10 mg Tablet 10 mg PO BID PRN (Reason: Muscle Spasm) Qty: 20 0RF cyclobenzaprine 5 mg tablet 5 mg PO HS PRN (Reason: muscle spasm) Qty: 7 0RF Referrals Follow up/Referrals: Narciso Ramos MD [Primary Care Provider] - See instructions Activity Restrictions/Add. Instructions Additional Instructions/Restrictions: Follow up with Dr Ramos if not improving Clinical Impressions Clinical Impression: Sinusitis Instructions Patient Instructions: DI for Sinusitis Discharge ED Provider: Karie Santamaria [facility] General Stated complaint: cough,vomit Time Seen by Provider: 05/29/23 19:21 History of Present Illness Provider Complaint: Cough, congestion, low-grade fever X 2 days. Sinus pain and pressure. No ear pain. Does have sore throat. Vomiting but no diarrhea. No rash. Onset (ago): day(s) (2) Relieving factors: none Exacerbating factors: none Associated symptoms: denies other symptoms Treatments prior to arrival: other (OTC sinus meds) Related Data Home Medications Medication Instructions Recorded Confirmed metformin 500 mg tablet,extended 500 mg PO BID DIABETIC 11/01/17 01/25/23 release 24 hr atorvastatin 10 mg tablet 10 mg PO HS Cholesterol 10/01/21 01/25/23 glipizide 5 mg tablet, extended 10 mg PO BID Diabetes 10/01/21 01/25/23 release 24 hr omeprazole 10 mg capsule,delayed 10 mg PO DAILY Reflux/Acid reflux 06/12/22 01/25/23 release Previous Rx's Medication Instructions Recorded aripiprazole 10 mg tablet (Abilify) 10 mg PO QHS Depression #90 tabs 10/29/22 cyclobenzaprine 10 mg tablet 10 mg PO BID PRN Muscle Spasm #20 11/04/22 tabs cyclobenzaprine 5 mg tablet 5 mg PO HS PRN muscle spasm #7 tabs 02/27/23 amoxicillin 875 mg-potassium 1 tab PO Q12H #20 tabs 05/29/23 clavulanate 125 mg tablet prednisone 20 mg tablet 20 mg PO BID 5 days #10 tabs 05/29/23 promethazine-DM 6.25 mg-15 mg/5 mL 5 ml PO Q6H PRN Cough #180 mL 05/29/23 oral syrup Allergies Allergy/AdvReac Type Severity Reaction Status Date / Time No Known Allergies Allergy Verified 02/27/23 18:08 [facility] Disclaimer: The information contained in this section may have been updated after the patient was seen, as this information can be updated by other users. 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
[2023-05-29 19:53] VITALS: BP 160/102; PULSE 102; RESP 18; TEMP 37.3; O2SAT 97
== END 2023-05-29 19:54 | disposition home or self-care (01) ==
PROVIDERS: Emergency Provider Physician Assistant; PCP Internal Medicine
DX: J01.90 Acute sinusitis, unspecified (principal); R50.9 Fever, unspecified; R11.10 Vomiting, unspecified; E11.9 Type 2 diabetes mellitus without complications; I10 Essential (primary) hypertension; E78.5 Hyperlipidemia, unspecified; G47.30 Sleep apnea, unspecified; F39 Unspecified mood [affective] disorder; Z79.84 Long term (current) use of oral hypoglycemic drugs
CPT/HCPCS: 96372; 99212; 99214; G0463; J0696; J1040